=== PATIENT | male | born 1965 ===

== ENCOUNTER 2016-08-21 11:31 | Emergency (ER) | payer MEDICAID ==
[2016-08-21 11:49] VITALS: BMI 35.9
--- NOTE | 2016-08-21 11:59 | ED PDOC ---
Arrival/HPI - General Chief Complaint: Psychiatric Evaluation Time Seen by Provider: 08/21/16 11:43 Historian: Patient - History of Present Illness Narrative History of Present Illness (Text): 08/21/16 11:50 A 51 year old male, whose past medical history includes anxiety, depression, COPD, and chronic back/shoulder pain, presents to the emergency department complaining of feeling depressed. Patient reports he has not been on his anxiety /depression medication for 6 months now. He states his and mother does not get along and he feels as though he is stuck in between them. Patient says he was watching a movie early and he just started to feel down so he wanted to get out of the house. Patient reports he decided to come to the emergency department to see if he can just talk to someone. He denies any fever, chills, or other physical complaints at this time. No history of suicide attempts. He currently denies any suicidal/homicidal ideations or visual/auditory hallucinations. PMD: Dr. Metcalf Time/Duration: Prior to Arrival Symptom Onset: Sudden Symptom Course: Unchanged Quality: Other Activities at Onset: Rest Context: Home Past Medical History - Provider Review Nursing Documentation Reviewed: Yes - Infectious Disease Hx of Infectious Diseases: None - Cardiac Hx Cardiac Disorders: No - Pulmonary Hx Respiratory Disorders: Yes Hx Asthma: Yes Hx Chronic Obstructive Pulmonary Disease (COPD): Yes - Neurological Hx Neurological Disorder: No - HEENT Hx HEENT Disorder: No Hx Blind: No - Renal Hx Renal Disorder: No - Endocrine/Metabolic Hx Endocrine Disorders: No - Hematological/Oncological Hx Blood Disorders: No - Integumentary Hx Dermatological Disorder: No - Musculoskeletal/Rheumatological Hx Musculoskeletal Disorders: Yes Hx Spinal Stenosis: Yes - Gastrointestinal Hx Gastrointestinal Disorders: No - Genitourinary/Gynecological Hx Genitourinary Disorders: No - Psychiatric Hx Psychophysiologic Disorder: Yes Hx Anxiety: Yes Hx Depression: Yes Hx Substance Use: No - Surgical History Hx Cardiac Catheterization: Yes - Anesthesia Hx Anesthesia: No Hx Anesthesia Reactions: No Hx Malignant Hyperthermia: No Family/Social History - Physician Review Nursing Documentation Reviewed: Yes Family/Social History: Unknown Family HX Smoking Status: Former Smoker Hx Alcohol Use: No Hx Substance Use: No Allergies/Home Meds Allergies/Adverse Reactions: Allergies No Known Allergies Allergy (Verified 08/21/16 11:49) Home Medications: Home Meds Medication Instructions Recorded Confirmed Budesonide/Formoterol Fumarate 1 puff IH BID 07/27/15 08/21/16 [Symbicort 160-4.5 Mcg Inhaler] Cetirizine HCl [Zyrtec Allergy] 10 mg PO DAILY 07/27/15 08/21/16 Albuterol HFA [Ventolin HFA 90 2 puff IH PRN PRN 06/28/16 08/21/16 mcg/actuation (8 g)] Cyclobenzaprine [Flexeril] 10 mg PO DAILY PRN 06/28/16 08/21/16 Review of Systems - Physician Review All systems were reviewed & negative as marked: Yes - Review of Systems Constitutional: Normal. absent: Fevers Eyes: Normal ENT: Normal Respiratory: Normal. absent: SOB Cardiovascular: Normal. absent: Chest Pain Gastrointestinal: Normal. absent: Abdominal Pain Genitourinary Male: Normal Musculoskeletal: Normal Skin: Normal Neurological: Normal Endocrine: Normal Hemo/Lymphatic: Normal Psychiatric: Depression, Other ( no homicidal ideations or visual/auditory hallucinations). absent: Suicidal Ideation Physical Exam Vital Signs Reviewed: Yes Vital Signs Temp Pulse Resp BP Pulse Ox 08/21/16 12:01 98.9 F 71 16 149/86 97 Temperature: Afebrile Blood Pressure: Normal Pulse: Regular Respiratory Rate: Normal Appearance: Positive for: Well-Appearing, Non-Toxic, Comfortable Pain Distress: None Mental Status: Positive for: Alert and Oriented X 3 - Systems Exam Head: Present: Atraumatic, Normocephalic Pupils: Present: PERRL Conjunctiva: Present: Normal Mouth: Present: Moist Mucous Membranes, Normal Tounge Pharnyx: Present: Normal. No: ERYTHEMA, EXUDATE Neck: Present: Normal Range of Motion Respiratory/Chest: Present: Clear to Auscultation, Good Air Exchange. No: Respiratory Distress, Accessory Muscle Use Cardiovascular: Present: Regular Rate and Rhythm, Normal S1, S2. No: Murmurs Abdomen: Present: Normal Bowel Sounds. No: Tenderness, Distention, Peritoneal Signs Back: Present: Normal Inspection Upper Extremity: Present: Normal Inspection. No: Cyanosis, Edema Lower Extremity: Present: Normal Inspection. No: Edema Neurological: Present: GCS=15, CN II-XII Intact, Speech Normal Skin: Present: Warm, Dry, Normal Color. No: Rashes Psychiatric: Present: Alert, Oriented x 3, Normal Insight, Normal Concentration , Depressed Mood Medical Decision Making ED Course and Treatment: 08/21/16 11:50 Impression: A 51 year old male with depression. Differential Diagnosis include but are not limited to: Anxiety/Depression Plan: -- Consult PES worker -- Reassess and disposition Prior Visits: Notes and results from previous visits were reviewed. The patient last presented to the emergency department on 06/28/16 for evaluation of right shoulder and lower back pain. Progress Notes: 08/21/16 11:57 Case discussed PES worker who states she will come down to talk to the patient. 08/21/16 12:48 Patient with no physical complaints; does not need additional medical workup beyond screening exam as he does not need or want to be admitted. Seen by PES, who spoke with the patient and gave him options for follow up. Ok for d/c. - Scribe Statement The provider has reviewed the documentation as recorded by the Scribe [place] Provider Scribe Attestation: All medical record entries made by the Scribe were at my direction and personally dictated by me. I have reviewed the chart and agree that the record accurately reflects my personal performance of the history, physical exam, medical decision making, and the department course for this patient. I have also personally directed, reviewed, and agree with the discharge instructions and disposition. Disposition/Present on Arrival - Present on Arrival Any Indicators Present on Arrival: No History of DVT/PE: No History of Uncontrolled Diabetes: No Urinary Catheter: No History of Decub. Ulcer: No History Surgical Site Infection Following: None - Disposition Have Diagnosis and Disposition been Completed?: Yes Diagnosis: Depression Disposition: HOME/ ROUTINE Disposition Time: 12:50 Patient Plan: Discharge Condition: GOOD Discharge Instructions (ExitCare): Depression (ED), Anxiety (ED) Additional Instructions: Follow up as instructed for counseling. Return to the emergency department if any new concerning symptoms. Referrals: [facility] [Outside] - Follow up with primary [facility] [Outside] - Follow up with primary [facility] [Outside] - Follow up with primary
[2016-08-21 12:03] VITALS: BP 149/86; PULSE 71; RESP 16; TEMP 98.9; O2SAT 97
--- NOTE | 2016-08-22 16:38 | CARD ---
APPROVED REPORT EKG Measurement Heart [id number] <Conclusion> Normal sinus rhythm Normal ECG
== END 2016-08-21 13:19 | disposition home or self-care (01) ==
LOC: ED 11:31
DX: F32.9 Major depressive disorder, single episode, unspecified (principal); F41.9 Anxiety disorder, unspecified

== ENCOUNTER 2017-02-08 10:41 | Emergency (ER) | payer MEDICAID ==
[2017-02-08 10:41] VITALS: BMI 35.9
[2017-02-08 10:50] VITALS: TEMP 98.1; O2SAT 100
[2017-02-08] MEDS ORDERED: Albuterol-Ipratrop 3 mg / 0.5 (3 ml) UD IH STA (10:56)
--- NOTE | 2017-02-08 10:56 | ED PDOC ---
Arrival/HPI - General Chief Complaint: Shortness Of Breath Time Seen by Provider: 02/08/17 10:45 Historian: Patient - History of Present Illness Narrative History of Present Illness (Text): 02/08/17 10:50 Dhruv Lozada is a 52 year old male, whose past medical history includes COPD, depression, anxiety, and chronic lower back problems, who presents to the emergency department complaining of shortness of breath and chest tightness. Patient reports he has been feeling anxious for the past two days, but this morning he felt chest tightness which caused his shortness of breath. Patient notes that when he gets anxiety, he usually experiences these symptoms. Patient denies any fever, nausea, vomiting, headache, lower extremity swelling, or other complaints. PMD: Dr. Metcalf Time/Duration: < week (2 days) Symptom Onset: Sudden Symptom Course: Unchanged Quality: Pressure, Tightness (chest) Activities at Onset: Emotional Upset (anxiety) Associated Symptoms (Text): chest tightness, shortness of breath, and anxiety Past Medical History - Provider Review Nursing Documentation Reviewed: Yes - Infectious Disease Hx of Infectious Diseases: None - Cardiac Hx Cardiac Disorders: No - Pulmonary Hx Respiratory Disorders: Yes Hx Asthma: Yes Hx Chronic Obstructive Pulmonary Disease (COPD): Yes - Neurological Hx Neurological Disorder: No - HEENT Hx HEENT Disorder: No Hx Blind: No - Renal Hx Renal Disorder: No - Endocrine/Metabolic Hx Endocrine Disorders: No - Hematological/Oncological Hx Blood Disorders: No - Integumentary Hx Dermatological Disorder: No - Musculoskeletal/Rheumatological Hx Musculoskeletal Disorders: Yes Hx Spinal Stenosis: Yes - Gastrointestinal Hx Gastrointestinal Disorders: No - Genitourinary/Gynecological Hx Genitourinary Disorders: No - Psychiatric Hx Psychophysiologic Disorder: Yes Hx Anxiety: Yes Hx Depression: Yes Hx Substance Use: No - Surgical History Hx Cardiac Catheterization: Yes - Anesthesia Hx Anesthesia: No Hx Anesthesia Reactions: No Hx Malignant Hyperthermia: No Family/Social History - Physician Review Nursing Documentation Reviewed: Yes Family/Social History: Unknown Family HX Smoking Status: Former Smoker Hx Alcohol Use: No Hx Substance Use: No Allergies/Home Meds Allergies/Adverse Reactions: Allergies No Known Allergies Allergy (Verified 02/08/17 10:45) Review of Systems - Review of Systems Constitutional: absent: Fevers Respiratory: SOB Cardiovascular: Chest Pain (tightness/pressure) Gastrointestinal: absent: Abdominal Pain, Nausea, Vomiting Musculoskeletal: absent: Back Pain Neurological: absent: Headache, Dizziness Psychiatric: Anxiety Physical Exam Vital Signs Reviewed: Yes Vital Signs Temp Pulse Resp BP Pulse Ox 02/08/17 12:59 85 16 129/85 100 02/08/17 10:53 18 100 02/08/17 10:41 98.1 F 89 16 157/89 H 100 Temperature: Afebrile Blood Pressure: Hypertensive Pulse: Regular Respiratory Rate: Normal Appearance: Positive for: Well-Appearing, Non-Toxic, Comfortable Pain Distress: None Mental Status: Positive for: Alert and Oriented X 3 - Systems Exam Head: Present: Atraumatic, Normocephalic Pupils: Present: PERRL Extroacular Muscles: Present: EOMI Conjunctiva: Present: Normal Mouth: Present: Moist Mucous Membranes Neck: Present: Normal Range of Motion. No: MIDLINE TENDERNESS, JVD Respiratory/Chest: Present: Clear to Auscultation, Good Air Exchange. No: Respiratory Distress, Accessory Muscle Use, Wheezes, Rales, Rhonchi Cardiovascular: Present: Regular Rate and Rhythm, Normal S1, S2. No: Murmurs Abdomen: Present: Normal Bowel Sounds. No: Tenderness, Distention, Peritoneal Signs Upper Extremity: Present: Normal Inspection. No: Cyanosis, Edema, Swelling Lower Extremity: Present: Normal Inspection. No: Edema Neurological: Present: GCS=15, CN II-XII Intact, Speech Normal Skin: Present: Warm, Dry, Normal Color. No: Rashes Psychiatric: Present: Alert, Oriented x 3, Normal Insight, Normal Concentration , Anxious Medical Decision Making ED Course and Treatment: 02/08/17 Impression: 52 year old male with anxiety. Clear physical exam. No wheezes, rales, or rhonchi. Normal heart. No leg swelling. Differential Diagnosis included but are not limited to: Anxiety vs. ACS Plan: -- EKG -- Chest X-ray -- Labs -- Ativan and Duoneb given for symptoms. Patient is not wheezing so not likely COPD exacerbation. -- Reassess and disposition Progress Notes: EKG: Ordered, reviewed, and independently interpreted the EKG. Rate : 98 BPM Rhythm : NSR Interpretation : No ST-segment elevations or depressions, no T-wave inversions, normal intervals. 02/08/17 11:15 Chest X-ray: Creator : Milton Casillas MD FINDINGS: LUNGS: No active pulmonary disease. PLEURA: No significant pleural effusion identified, no pneumothorax apparent. CARDIOVASCULAR: Normal. OSSEOUS STRUCTURES: No significant abnormalities. VISUALIZED UPPER ABDOMEN: Normal. OTHER FINDINGS: None. IMPRESSION: No acute cardiopulmonary disease appreciated. No significant interval change identified. 02/08/17 12:47 Patient feels completely better. No longer having symptoms. He states the Ativan resolved his symptoms and would like an Rx. Patient is requesting medication for his COPD, allergies, lower back pain, and GERD. Medication will be given and prescribed for his discharge. - Lab Interpretations Lab Results: 02/08/17 11:23 02/08/17 11:23 Lab Results 02/08/17 11:23: Sodium 143, Potassium 4.1, Chloride 105, Carbon Dioxide 27, Anion Gap 15, BUN 17, Creatinine 1.0, Est GFR ( Amer) > 60, Est GFR (Non- Af Amer) > 60, Random Glucose 126 H, Calcium 9.6, Magnesium 2.0, Total Bilirubin 1.2, AST 25, ALT 40, Alkaline Phosphatase 61, Lactate Dehydrogenase 439, Total Creatine Kinase 88, Troponin I < 0.01, Total Protein 7.6, Albumin 4.5 , Globulin 3.1, Albumin/Globulin Ratio 1.5 02/08/17 11:23: WBC 8.2 D, RBC 5.12, Hgb 15.4, Hct 44.9, MCV 87.7, MCH 30.1, MCHC 34.3, RDW 14.0, Plt Count 256, MPV 10.0, Gran % 63.9, Lymph % (Auto) 26.2, [place] % (Auto) 7.9 H, Eos % (Auto) 1.8, Baso % (Auto) 0.2, Gran # 5.25, Lymph # 2.2, [place] # 0.7 H, Eos # 0.2, Baso # 0.02 I have reviewed the lab results: Yes - RAD Interpretation Radiology Orders: 02/08/17 10:55 CHEST PORTABLE [RAD] Stat Freelance Director: Radiologist - EKG Interpretation Interpreted by ED Physician: Yes Type: 12 lead EKG - Medication Orders Current Medication Orders: Discontinued Medications Albuterol/Ipratropium (Duoneb 3 Mg/0.5 Mg (3 Ml) Ud) 3 ml IH STAT STA Stop: 02/08/17 10:57 Last Admin: 02/08/17 11:21 Dose: 3 ml Lorazepam (Ativan) 1 mg IVP ONCE ONE PRN Reason: Protocol Stop: 02/08/17 10:56 Last Admin: 02/08/17 11:21 Dose: 1 mg IVP Administration Document 02/08/17 11:21 AD (Rec: 02/08/17 11:21 AD [facility] [id number]) Charges for Administration # of IVP Administrations 1 - Scribe Statement The provider has reviewed the documentation as recorded by the Scribe Evy Gilmore Provider Scribe Attestation: All medical record entries made by the Scribe were at my direction and personally dictated by me. I have reviewed the chart and agree that the record accurately reflects my personal performance of the history, physical exam, medical decision making, and the department course for this patient. I have also personally directed, reviewed, and agree with the discharge instructions and disposition. Disposition/Present on Arrival - Present on Arrival Any Indicators Present on Arrival: No History of DVT/PE: No History of Uncontrolled Diabetes: No Urinary Catheter: No History of Decub. Ulcer: No History Surgical Site Infection Following: None - Disposition Have Diagnosis and Disposition been Completed?: Yes Diagnosis: Anxiety, Chest pain, COPD (chronic obstructive pulmonary disease) Disposition: HOME/ ROUTINE Disposition Time: 13:00 Patient Plan: Discharge Condition: IMPROVED Discharge Instructions (ExitCare): Chest Pain (ED), COPD (Chronic Obstructive Pulmonary Disease) (ED), Anxiety (ED) Additional Instructions: Lozada, thank you for letting us take care of you today. Your provider was Dr. Escobedo. You were treated for Anxiety, Chest Pain, COPD. The emergency medical care you received today was directed at your acute symptoms. If you were prescribed any medication, please fill it and take as directed. It may take several days for your symptoms to resolve. Return to the Emergency Department if your symptoms worsen, do not improve, or if you have any other problems. Please contact your doctor or call one of the physicians/clinics you have been referred to that are listed on the Patient Visit Information form that is included in your discharge packet. Bring any paperwork you were given at discharge with you along with any medications you are taking to your follow up visit. Our treatment cannot replace ongoing medical care by a primary care provider (PCP) outside of the emergency department. Thank you for allowing the [facility] team to be part of your care today. If you had an X-Ray or CT scan: A Radiologist will review the ED reading if any change in treatment is needed we will contact you. If you had a blood, urine, or wound culture: It will take several days for the results, if any change in treatment is needed we will contact you. If you had an STI test: It will take 48 hours for the results. Please call after 1 week if you have not heard back. Prescriptions: Albuterol HFA [Ventolin HFA 90 mcg/actuation (8 g)] 2 puff IH Q4 #1 puff Alprazolam [Xanax] 0.5 mg PO Q8 PRN #5 tab PRN Reason: Anxiety Budesonide/Formoterol Fumarate [Symbicort 160-4.5 Mcg Inhaler] 10.2 gm IH BID # 1 hfa.aer.ad Cetirizine HCl [Zyrtec] 10 mg PO DAILY #20 capsule Cyclobenzaprine [Cyclobenzaprine HCl] 10 mg PO Q8 PRN #20 tab PRN Reason: Muscle Spasm Famotidine 20 mg PO DAILY #30 tablet Referrals: Izzy Metcalf MD [Primary Care Provider] - Follow up with primary Forms: [employer] ([place]er), WORK NOTE
--- NOTE | 2017-02-08 11:10 | RAD ---
HISTORY: chest pain COMPARISON: No prior. FINDINGS: LUNGS: No active pulmonary disease. PLEURA: No significant pleural effusion identified, no pneumothorax apparent. CARDIOVASCULAR: Normal. OSSEOUS STRUCTURES: No significant abnormalities. VISUALIZED UPPER ABDOMEN: Normal. OTHER FINDINGS: None. IMPRESSION: No acute cardiopulmonary disease appreciated. No significant interval change identified.
[2017-02-08 11:27] LABS: BASO # 0.02 K/mm3 (0.0-2.0); BASO % 0.2 % (0.0-3.0); EOS # 0.2 (0.0-0.7); EOS % 1.8 % (1.5-5.0); GRAN # 5.25 (1.4-6.5); GRAN % 63.9 % (50.0-68.0); HEMATOCRIT 44.9 % (42.0-52.0); LYMPH # 2.2 (1.2-3.4); LYMPH % 26.2 % (22.0-35.0); MEAN CELL VOLUME 87.7 fl (80.0-105.0); MEAN CORPUSCULAR HEMOGLOBIN 30.1 pg (25.0-35.0); MEAN CORPUSCULAR HGB CONC 34.3 g/dl (31.0-37.0); MONO # 0.7 (0.1-0.6); MONO % 7.9 % (1.0-6.0); WHITE BLOOD COUNT 8.2 10^3/ul (4.5-11.0)
[2017-02-08 11:37] LABS: ALB/GLOB RATIO 1.5 (1.1-1.8); ALKALINE PHOSPHATASE 61 U/L (38-126); ALT/SGPT 40 U/L (7-56); AST/SGOT 25 U/L (17-59); BILIRUBIN,TOTAL 1.2 mg/dL (0.2-1.3); BLOOD UREA NITROGEN 17 mg/dL (7-21); CALCIUM 9.6 mg/dL (8.4-10.5); CARBON DIOXIDE 27 mmol/L (21-33); CHLORIDE 105 mmol/L (98-107); GFR AFRICAN-AMERICAN > 60; GLUCOSE,RANDOM 126 mg/dL (70-110); POTASSIUM 4.1 mmol/L (3.6-5.0); SODIUM 143 mmol/L (132-148); TOTAL PROTEIN 7.6 g/dL (5.8-8.3)
[2017-02-08 11:48] LABS: TROPONIN I < 0.01 ng/mL
[2017-02-08 13:00] VITALS: BP 129/85; PULSE 85; RESP 16
--- NOTE | 2017-02-09 08:15 | CARD ---
APPROVED REPORT EKG Measurement Heart [id number] <Conclusion> Normal sinus rhythm Normal ECG
== END 2017-02-08 13:01 | disposition home or self-care (01) ==
LOC: ED 10:41
DX: J44.9 Chronic obstructive pulmonary disease, unspecified (principal); R07.9 Chest pain, unspecified; F41.9 Anxiety disorder, unspecified; Z87.891 Personal history of nicotine dependence
CPT/HCPCS: 71010; 80053; 82550; 83615; 83735; 84484; 85025; 93005; 96374; 99284; J2060

== ENCOUNTER 2017-07-19 11:27 | Inpatient (IN) | payer MEDICAID ==
[2017-07-19 11:28] VITALS: BMI 35.9
[2017-07-19] MEDS ORDERED: Albuterol-Ipratrop 3 mg / 0.5 (3 ml) UD IH STA (11:39)
--- NOTE | 2017-07-19 11:39 | ED PDOC ---
Arrival/HPI - General Time Seen by Provider: 07/19/17 11:33 Historian: Patient - History of Present Illness Narrative History of Present Illness (Text): 07/19/17 11:37 52 year old male, whose past medical history includes COPD, depression, and chronic lower back pain, presents to the emergency department complaining of suicidal ideation. Patient notes he feels anxious and hears voices telling him to kill himself. Patient notes he regularly sees a therapist on Tuesdays and . Patient occasionally takes his depression medication. No previous attempts to commit suicide. Patient denies any fevers, chest pain, back pain, headache, dizziness, abdominal pain, nausea, vomiting, diarrhea, homicidal ideation or any other complaints. Time/Duration: Prior to Arrival Symptom Onset: Gradual Symptom Course: Unchanged Activities at Onset: Light Context: Home Past Medical History - Provider Review Nursing Documentation Reviewed: Yes - Infectious Disease Hx of Infectious Diseases: None - Cardiac Hx Cardiac Disorders: No - Pulmonary Hx Respiratory Disorders: Yes Hx Asthma: Yes Hx Chronic Obstructive Pulmonary Disease (COPD): Yes - Neurological Hx Neurological Disorder: No - HEENT Hx HEENT Disorder: No Hx Blind: No - Renal Hx Renal Disorder: No - Endocrine/Metabolic Hx Endocrine Disorders: No - Hematological/Oncological Hx Blood Disorders: No - Integumentary Hx Dermatological Disorder: No - Musculoskeletal/Rheumatological Hx Musculoskeletal Disorders: Yes Hx Spinal Stenosis: Yes - Gastrointestinal Hx Gastrointestinal Disorders: No - Genitourinary/Gynecological Hx Genitourinary Disorders: No - Psychiatric Hx Psychophysiologic Disorder: Yes Hx Anxiety: Yes Hx Depression: Yes Hx Substance Use: No - Surgical History Hx Cardiac Catheterization: Yes - Anesthesia Hx Anesthesia: No Hx Anesthesia Reactions: No Hx Malignant Hyperthermia: No Family/Social History - Physician Review Nursing Documentation Reviewed: Yes Family/Social History: No Known Family HX Smoking Status: Former Smoker Hx Alcohol Use: No Hx Substance Use: No Allergies/Home Meds Allergies/Adverse Reactions: Allergies No Known Allergies Allergy (Verified 07/19/17 11:40) Review of Systems - Physician Review All systems were reviewed & negative as marked: Yes - Review of Systems Respiratory: absent: SOB Physical Exam - Physical Exam Narrative Physical Exam (Text): 07/19/17 11:44 Gen: NAD Head: NC/AT Eyes: PERRL ENT: MMM Neck: Supple Chest: No tenderness CV: Regular rate Lungs: CTA b/l Abd: Soft, NT Back: No CVA tenderness Extremities: No swelling or tenderness Skin: No rash Neuro: Alert, no focal deficit Vital Signs Temp Pulse Resp BP Pulse Ox 07/19/17 15:20 65 17 136/80 98 07/19/17 13:19 70 18 135/82 100 07/19/17 11:28 98.1 F 63 20 139/74 100 Medical Decision Making ED Course and Treatment: 07/19/17 11:44 Impression: 52 year old male presents to the ED complaining of suicidal ideation. Plan: -- EKG -- CXR -- Urinalysis -- Labs -- Acetaminophen -- Duoneb -- Salycilate -- Reassess and disposition Progress Notes: 07/19/17 12:09 Chest X-ray reviewed, shows: LUNGS: No active pulmonary disease. PLEURA: No significant pleural effusion identified, no pneumothorax apparent. CARDIOVASCULAR: Normal. OSSEOUS STRUCTURES: No significant abnormalities. VISUALIZED UPPER ABDOMEN: Normal. OTHER FINDINGS: None. IMPRESSION: No active disease. 07/19/17 12:26 EKG reviewed, shows NSR at 61 bpm. NST/T wave changes. - Lab Interpretations Lab Results: 07/19/17 12:30 07/19/17 12:30 Lab Results 07/19/17 12:40: Urine Opiates Screen Negative, Urine Methadone Screen Negative, Ur Barbiturates Screen Negative, Ur Phencyclidine Scrn Negative, Ur Amphetamines Screen Negative, U Benzodiazepines Scrn Negative, U Oth Cocaine Metabols Negative, U Cannabinoids Screen Positive H 07/19/17 12:40: Urine Color Yellow, Urine Appearance Clear, Urine pH 6.0, Ur Specific [place] 1.025, Urine Protein Negative, Urine Glucose (UA) Negative, Urine Ketones Negative, Urine Blood Negative, Urine Nitrate Negative, Urine Bilirubin Negative, Urine Urobilinogen 0.2, Ur Leukocyte Esterase Negative 07/19/17 12:30: Alcohol, Quantitative < 10 07/19/17 12:30: Salicylates < 1 L, Acetaminophen < 10.0 L 07/19/17 12:30: Sodium 145, Potassium 5.1 H, Chloride 106, Carbon Dioxide 28, Anion Gap 16, BUN 18, Creatinine 1.2, Est GFR ( Amer) > 60, Est GFR (Non- Af Amer) > 60, Random Glucose 106, Calcium 10.2, Total Bilirubin 0.8, AST 25, ALT 47, Alkaline Phosphatase 62, Total Protein 8.0, Albumin 4.5, Globulin 3.5, Albumin/Globulin Ratio 1.3 07/19/17 12:30: WBC 7.9, RBC 5.04, Hgb 15.5, Hct 46.2, MCV 91.7 D, MCH 30.8, MCHC 33.5, RDW 14.4, Plt Count 243, MPV 10.7, Gran % 55.6, Lymph % (Auto) 32.5, [place] % (Auto) 8.8 H, Eos % (Auto) 2.8, Baso % (Auto) 0.3, Gran # 4.37, Lymph # ( Auto) 2.6, [place] # (Auto) 0.7 H, Eos # (Auto) 0.2, Baso # (Auto) 0.02 - RAD Interpretation Radiology Orders: 07/19/17 11:38 CHEST PORTABLE [RAD] Stat - Medication Orders Current Medication Orders: Discontinued Medications Albuterol/Ipratropium (Duoneb 3 Mg/0.5 Mg (3 Ml) Ud) 3 ml IH STAT STA Stop: 07/19/17 11:40 Last Admin: 07/19/17 12:20 Dose: 3 ml - Scribe Statement The provider has reviewed the documentation as recorded by the Scribe Kylee Haywood All medical record entries made by the Scribe were at my direction and personally dictated by me. I have reviewed the chart and agree that the record accurately reflects my personal performance of the history, physical exam, medical decision making, and the department course for this patient. I have also personally directed, reviewed, and agree with the discharge instructions and disposition. Disposition/Present on Arrival - Present on Arrival Any Indicators Present on Arrival: No History of DVT/PE: No History of Uncontrolled Diabetes: No Urinary Catheter: No History Surgical Site Infection Following: None - Disposition Have Diagnosis and Disposition been Completed?: Yes Diagnosis: Major depressive disorder with psychotic features, Panic disorder Disposition: HOSPITALIZED Disposition Time: 13:18 Patient Plan: Admission Condition: FAIR Referrals: Izzy Metcalf MD [Primary Care Provider] - Follow up with primary
--- NOTE | 2017-07-19 12:06 | RAD ---
HISTORY: suicidal ideation COMPARISON: 02/08/2017 FINDINGS: LUNGS: No active pulmonary disease. PLEURA: No significant pleural effusion identified, no pneumothorax apparent. CARDIOVASCULAR: Normal. OSSEOUS STRUCTURES: No significant abnormalities. VISUALIZED UPPER ABDOMEN: Normal. OTHER FINDINGS: None. IMPRESSION: No active disease.
[2017-07-19 12:44] LABS: BASO # 0.02 K/mm3 (0.0-2.0); BASO % 0.3 % (0.0-3.0); EOS # 0.2 (0.0-0.7); EOS % 2.8 % (1.5-5.0); GRAN # 4.37 (1.4-6.5); GRAN % 55.6 % (50.0-68.0); HEMOGLOBIN 15.5 g/dL (14.0-18.0); LYMPH # 2.6 (1.2-3.4); LYMPH % 32.5 % (22.0-35.0); MEAN CELL VOLUME 91.7 fl (80.0-105.0); MEAN CORPUSCULAR HEMOGLOBIN 30.8 pg (25.0-35.0); MEAN CORPUSCULAR HGB CONC 33.5 g/dl (31.0-37.0); MEAN PLATELET VOLUME 10.7 fl (7.0-11.0); MONO # 0.7 (0.1-0.6); MONO % 8.8 % (1.0-6.0); RBC 5.04 10^6/uL (3.5-6.1); RED CELL DISTRIBUTION WIDTH 14.4 % (11.5-14.5); WHITE BLOOD COUNT 7.9 10^3/ul (4.5-11.0)
[2017-07-19 12:52] LABS: URINE BILIRUBIN NEGATIVE (NEGATIVE); URINE BLOOD NEGATIVE (NEGATIVE); URINE GLUCOSE (UA) NEGATIVE (NEGATIVE); URINE LEUKOCYTE ESTERASE NEGATIVE Leu/uL (NEGATIVE); URINE PROTEIN NEGATIVE mg/dL (<30 mg/dL); URINE UROBILINOGEN 0.2 E.U./dL (<1 E.U./dL)
[2017-07-19 12:59] LABS: URINE APPEARANCE CLEAR (CLEAR); URINE COLOR YELLOW (YELLOW)
[2017-07-19 13:02] LABS: ALB/GLOB RATIO 1.3 (1.1-1.8); ALBUMIN 4.5 g/dL (3.0-4.8); ALT/SGPT 47 U/L (7-56); AST/SGOT 25 U/L (17-59); BLOOD UREA NITROGEN 18 mg/dL (7-21); CALCIUM 10.2 mg/dL (8.4-10.5); GFR AFRICAN-AMERICAN > 60; GFR NON-AFRICAN AMERICAN > 60
[2017-07-19 13:03] LABS: ACETAMINOPHEN < 10.0 ug/ml (10.0-20.0); SALICYLATE < 1 mg/dL (2.0-20.0)
[2017-07-19 13:16] LABS: BARBITURATES, UR NEGATIVE (NEGATIVE); BENZODIAZEPINES, UR NEGATIVE (NEGATIVE); OPIATES, UR NEGATIVE (NEGATIVE); PHENCYCLIDINE, UR NEGATIVE (NEGATIVE)
[2017-07-19 15:21] VITALS: O2SAT 98
--- NOTE | 2017-07-19 17:03 | CARD ---
APPROVED REPORT EKG Measurement Heart [id number] <Conclusion> Normal sinus rhythm Normal ECG
[2017-07-19] MEDS ORDERED: Alum-Mag Hydrox-Simethicone Susp (30 mL) PO PRN (17:39)
[2017-07-19] MEDS ORDERED: Magnesium Hydroxide Susp 30 ml UD PO PRN (17:39)
--- NOTE | 2017-07-19 18:12 | PCM.BM ---
<Donny Glass - Last Filed: 07/19/17 18:11> Treatment Plan Problems - Problems identified on initial assessmt Anxiety Date Initiated: 07/19/17 Time Initiated: 18:12 Assessment reference: NA Status: Active Priority: 1 Depressive Symptoms Date Initiated: 07/19/17 Time Initiated: 18:12 Assessment reference: NA Priority: 2 Panic Attacks Date Initiated: 07/19/17 Time Initiated: 18:12 Assessment reference: NA Status: Active Priority: 3 <Orquidea Driscoll - Last Filed: 07/20/17 14:37> Family Contact Family involvement: Family/SO is involved Family contact: Patient agrees to contact Family contact name: Katie Dietz(girlfriend) [phone] Family contacted how many times per week?: 2 - Outside Agency [facility] Care involvment: Information-sharing Agency contact name: [facility], therapist, Shanta Perry Agency contact number: [phone] <Eva Casanova - Last Filed: 07/20/17 14:41> - Diagnosis (1) Adjustment disorder with mixed anxiety and depressed mood Status: Acute Interventions: 07/20/17 14:40 Psychoeducation Psychopharmacology/adjustment of medications as needed/ monitoring possible side effects Evaluate pt on daily basis Compliance with medications and follow up appointments Suicide and homicide risk assessment and prevention Relapse prevention Reduction of symptoms Improve functional status Family involvement As outpatient: cognitive behavioral therapy Relaxation techniques and breathing exercises Improve functional status Family involvement Cognitive behavioral therapy as outpatient
[2017-07-19] MEDS ORDERED: Albuterol-Ipratrop 3 mg / 0.5 (3 ml) UD ONE (18:37)
[2017-07-19] MEDS ORDERED: Albuterol-Ipratrop 3 mg / 0.5 (3 ml) UD IH PRN (18:44)
[2017-07-20 07:03] VITALS: BP 123/91; PULSE 77; RESP 20; TEMP 99.6
[2017-07-20 08:07] LABS: GLUCOSE,FASTING 106 mg/dL (65-110); HDL CHOLESTEROL 62 mg/dL (29-60)
[2017-07-20 08:17] LABS: LDL CHOLESTEROL 93 mg/dL (0-129)
[2017-07-20 08:25] LABS: FREE T4 1.18 ng/dL (0.78-2.19)
--- NOTE | 2017-07-20 14:37 | PCM.PSYCH ---
Initial Psychiatric Evaluation - Initial Psychiatric Evaluation Type of Admission: Voluntary Legal Status: Capacity (patient has capacity to sign consent for treatment) Chief Complaint (in patient's own words): "I was sleepy, I did not realize that I'm signing myself in for psychiatric admission" Patient's Reaction to Hospitalization: patient was admitted to the psychiatric inpatient unit for worsening depression and anxiety. History of Present Illness and Precipitating Events: shortly patient is 52-year-old male, self reported history of depression and anxiety, denied history or psychiatric admissions, denied history of suicidal attempts, patient lives with his in [place], came to the hospital for evaluation of panic attacks, in the emergency room patient reported being depressed, hopeless, patient was offered psychiatric admission, patient was willing to sign himself into the hospital at the time of coming to the psychiatric inpatient unit patient signed 48 hour notice requesting discharge. 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 As per collateral information from the nursing staff, patient did not have any behavioral disturbances, polite, consistent with his history. Patient was seen and examined today at the treatment team meeting,patient reported that she moved to [place] recently, patient reported that he was struggling with his anxiety and depression which mostly related to the social problems as well as financial problems. He shouldn't reported that he was feeling more anxious and depressed patient adamantly denied thoughts of harming himself or others, patient said that he was status post medication in the emergency room and he was not aware that he was signing consent for psychiatric inpatient admission. pt said that he has scheduled appt at [employer] office tomorrow at 9am and "I cannot miss it". pt gave permission to speak to his , SW contacted , pt's confirmed that information. pt's said pt did not express any thoughts of harming self or others, willing to accept him back. pt said he was not able to sleep because "my mind is very busy, patient reported that he was feeling very anxious and he sees therapist twice a week. patient denied hearing voices denied seeing things denied paranoid ideation but reports that "my mind is very busy". patient denied smoking, denied using drugs, denied drinking alcohol. Past psychiatric history: denied previous psychiatric admissions, denied previous suicidal attempts. Currently linked to OPD treatment (individual) at [facility] in [place] - Angelica Hollis (Therapist) and unable to recall Psychiatrists name as he has only seen him twice, monthly. Other OPD treatment facilities include [facility] ([facility]), [facility] ([facility]) , and [facility] ([facility]). medical history: Patient has COPD Family history: Patient's son hang himself at age of 12. Pt. is a 52 year old M/H/M referred to [facility] for psychiatric evaluation. "I've been having thoughts of killing myself on and off since 2005, I go through good and bad periods, but the past couple of months I have been really struggling. I had a severe panic attack yesterday, so I went to see my therapist again and told her everything that was going on and how I was feeling and she suggested that I come to the hospital yesterday, but I felt like I would be OK. I made a promise to her that if I woke up today and still felt the same that I would come to the ER so I did, and I called her on the way over here. All the noise that's going on in my head, it's really overwhelming." Pt. appears anxious but fully cooperative during assessment. Admits to SI, with plan(s), but no plan is fully fixed in place, as they range from how he is feeling in the moment. Denies any HI. Pt. also admits to AH, of multiple voices, but can't make out what they are saying, and states that all of the "noise" causes him to become so "overwhelmed" that he has feelings of wanting to hurt himself so he can make them stop. Pt. reports very poor sleep, "no" sleep last evening, despite being recently prescribed Trazadone at [facility]. Fluxuating appetite. Increased panic attacks. Seeking potential IPU admission for stabilization of symptoms. 07/19/17 12:30 07/19/17 12:30 Lab Results 07/20/17 07:00: Free T4 1.18, TSH 3rd Generation 4.86 H 07/20/17 07:00: Fasting Glucose 106, Triglycerides 102, Cholesterol 178, LDL Cholesterol Direct 93, HDL Cholesterol 62 H 07/19/17 12:40: Urine Opiates Screen Negative, Urine Methadone Screen Negative, Ur Barbiturates Screen Negative, Ur Phencyclidine Scrn Negative, Ur Amphetamines Screen Negative, U Benzodiazepines Scrn Negative, U Oth Cocaine Metabols Negative, U Cannabinoids Screen Positive H 07/19/17 12:40: Urine Color Yellow, Urine Appearance Clear, Urine pH 6.0, Ur Specific [place] 1.025, Urine Protein Negative, Urine Glucose (UA) Negative, Urine Ketones Negative, Urine Blood Negative, Urine Nitrate Negative, Urine Bilirubin Negative, Urine Urobilinogen 0.2, Ur Leukocyte Esterase Negative 07/19/17 12:30: Alcohol, Quantitative < 10 07/19/17 12:30: Salicylates < 1 L, Acetaminophen < 10.0 L 07/19/17 12:30: Sodium 145, Potassium 5.1 H, Chloride 106, Carbon Dioxide 28, Anion Gap 16, BUN 18, Creatinine 1.2, Est GFR ( Amer) > 60, Est GFR (Non- Af Amer) > 60, Random Glucose 106, Calcium 10.2, Total Bilirubin 0.8, AST 25, ALT 47, Alkaline Phosphatase 62, Total Protein 8.0, Albumin 4.5, Globulin 3.5, Albumin/Globulin Ratio 1.3 07/19/17 12:30: WBC 7.9, RBC 5.04, Hgb 15.5, Hct 46.2, MCV 91.7 D, MCH 30.8, MCHC 33.5, RDW 14.4, Plt Count 243, MPV 10.7, Gran % 55.6, Lymph % (Auto) 32.5, [place] % (Auto) 8.8 H, Eos % (Auto) 2.8, Baso % (Auto) 0.3, Gran # 4.37, Lymph # ( Auto) 2.6, [place] # (Auto) 0.7 H, Eos # (Auto) 0.2, Baso # (Auto) 0.02 Vital Signs Temp Pulse Resp BP Pulse Ox 07/20/17 07:02 99.6 F 77 20 123/91 H 07/19/17 18:09 16 07/19/17 15:20 65 17 136/80 98 07/19/17 13:19 70 18 135/82 100 07/19/17 11:28 98.1 F 63 20 139/74 100 Current Medications: Active Medications Generic Name Dose Route Start Last Admin Trade Name Freq PRN Reason Stop Dose Admin Acetaminophen 650 mg 07/19/17 17:39 Tylenol 325mg Tab PO Q4 PRN Pain, Mild (1-3) Al Hydrox/Mg Hydrox/Simethicone 30 ml 07/19/17 17:39 Maalox Plus 30 Ml PO DAILY PRN Upset Stomach Albuterol/Ipratropium 3 ml 07/19/17 18:44 07/20/17 06:31 Duoneb 3 Mg/0.5 Mg (3 Ml) Ud IH 3 ml [id number] PRN Administration Shortness of Breath Clonazepam 0.5 mg 07/19/17 18:07 Klonopin PO BID PRN Anxiety Protocol Lorazepam 1 mg 07/19/17 18:06 Ativan IM Q6H PRN Agitation Protocol Lorazepam 1 mg 07/19/17 18:06 Ativan PO Q6H PRN Agitation Protocol Magnesium Hydroxide 30 ml 07/19/17 17:39 Milk Of Magnesia PO DAILY PRN Constipation Trazodone HCl 50 mg 07/19/17 22:00 Desyrel PO HS PRN Insomnia Past Psychiatric History - Past Psychiatric History Previous Treatment History: None Prior Professional Help: see HPI Prior Psychiatric Treatment: see HPI At what hospital: see HPI Duration: see HPI Nature of Treatment: see HPI Explanation of prior treatment: see HPI History of Abuse: see HPI patient denied history of abuse History of ETOH/Drug Use: denied History of Family Illness: see HPI Pertinent Medical Hx (Current Medical&Sleep Prob, Allergies): Allergies Allergy/AdvReac Type Severity Reaction Status Date / Time No Known Allergies Allergy Verified 07/19/17 18:13 Albuterol HFA [Ventolin HFA 90 mcg/actuation (8 g)] 2 puff IH Q4 #1 puff Alprazolam [Xanax] 0.5 mg PO Q8 PRN #5 tab 02/08/17 Budesonide/Formoterol Fumarate [Symbicort 160-4.5 Mcg Inhaler] 10.2 gm IH BID # 1 hfa.aer.ad 02/08/17 Cetirizine HCl [Zyrtec] 10 mg PO DAILY #20 capsule 02/08/17 Cyclobenzaprine [Cyclobenzaprine HCl] 10 mg PO Q8 PRN #20 tab 02/08/17 Famotidine 20 mg PO DAILY #30 tablet 02/08/17 Review of Systems - Review of Systems Systems not reviewed;Unavailable: Acuity of Condition - EENT Eyes: As Per HPI Ears: As Per HPI Nose/Mouth/Throat: As Per HPI - Cardiovascular Cardiovascular: As Per HPI - Respiratory Respiratory: As Per HPI - Gastrointestinal Gastrointestinal: As Per HPI - Genitourinary Genitourinary: As Per HPI - Reproductive: Male Reproductive:Male: As Per HPI - Musculoskeletal Musculoskeletal: As Par HPI - Integumentary Integumentary: As Per HPI - Neurological Neurological: As Per HPI - Psychiatric Psychiatric: As Per HPI - Endocrine Endocrine: As Per HPI - Hematologic/Lymphatic Hematologic: As Per HPI Mental Status Examination - Personal Presentation Personal Presentation: Looks stated age - Affect Affect: Constricted (but reactive, mood congruent) - Motor Activity Motor Activity: Calm - Reliability in Providing Information Reliability in Providing Information: Good - Speech Speech: Organized - Mood Mood: Depressed, Anxious - Formal Thought Process Formal Thought Process: No Impairment - Obsessions/Compulsions Obsessions: None Compulsions: None - Cognitive Functions Orientation: Person, Place, Situation, Time Sensorium: Alert Attention/Concentration: Easily distracted Abstract Thinking: As evidence by abstract perception of proverbs Estimate of Intelligence: Average Judgement: Intact, as evidence by: Insight regarding need for hospitalization - Risk Risk: Diminished functioning - Strength & Assets Inventory Strength & Assets Inventory: Intelligence, Family support, Life experience, Cooperative - Limitations Limitations: Other (patient signing himself out of the hospital) DSM 5 DX - DSM 5 DSM 5 Diagnosis: Rule out bipolar spectrum disorder Rule out major depressive disorder Rule out anxiety due to general medical condition, patient has COPD Rule out panic disorder Rule out generalized anxiety disorder Rule out adjustment disorder with depressed and anxious mood - Recommended/Plan of Treatment Treatment Recommendations and Plan of Treatment: patient submitted 48 hour notice, requesting discharge Patient refuses to stay in the hospital saying that he has appointment at [employer] office Reason patient presentation patient deemed not to be in any imminent danger to self or others patient has follow-up appointment with his therapist as well as psychiatrist Patient might benefit from the psychiatric admission, but refused to stay in the hospital, patient will be discharged from the psychiatric inpatient unit AGAINST MEDICAL ADVICE Patient was advised to take medication as prescribed, follow-up with his therapist and psychiatrist, patient contracted for safety patient does not meet the criteria for involuntary commitment and screening Prognosis: fair Discharge Plan and Discharge Criteria: Pt will be not depressed or manic, will be more hopeful, will be not psychotic or anxious, will be not having thoughts of harming self or others, will be tolerating medications well, will not have major side effects, will be able to function, will not pose threat to self or others. - Smoking Cessation Smoking Cessation Initiated: No Reason for not providing: patient denied smoking
--- NOTE | 2017-07-20 14:40 | PCM.PYCHDC ---
Mental Status Examination - Mental Status Examination Orientation: Person, Place, Situation, Time Memory: Intact Mood: Depressed Affect: Constricted (but reactive mood congruent) Speech: Appropriate Attention: WNL Concentration: WNL Association: WNL Fund of Knowledge: WNL Formal Thought Process: No Impairment Description of patient's judgement and insight: , pt was compliant with medications and unit rules and regulations, pt was going to groups, was calm, cooperative, socially appropriate, no behavioral incidents, no agitation, no aggression. Psychotic Thoughts and Behaviors: Pt denied v/a/t hallucinations, denied paranoid ideations, pt does not appear to be psychotic, and thought process is goal directed. Suicidal Ideation: No Current Homicidal Ideation?: No Plan: pt adamantly denied thoughts of harming self or others denied intent or plan. Discharge Summary - Discharge Note Reason for Hospitalization: patient was admitted to the psychiatric inpatient unit for worsening depression and anxiety. Psychiatric History (includes Medical, Family, Personal Hx): see HPI Laboratory Data: Abnormal Lab Results 07/20/17 07/20/17 07:00 07:00 Fasting Glucose 106 Triglycerides 102 Cholesterol 178 LDL Cholesterol Direct 93 HDL Cholesterol 62 H Free T4 1.18 TSH 3rd Generation 4.86 H Consultations:: List each consultation separately and include: 1. Reason for request. 2. Findings. 3. Follow-up Consultations: medical team was called Summary of Hospital Course include:: 1. Description of specific treatment plan utilized for patients during their course of treatmen. 2. Summarize the time- course for resolution of acute symptoms and/or regressed behaviors. 3. Describe issues identified and worked on during hospitalization. 4. Describe medication utilized. 5. Describe medical problems identified and treated. 6. Reassessment of suicide risk Summary of Hospital Course: shortly patient is 52-year-old male, self reported history of depression and anxiety, denied history or psychiatric admissions, denied history of suicidal attempts, patient lives with his in [place], came to the hospital for evaluation of panic attacks, in the emergency room patient reported being depressed, hopeless, patient was offered psychiatric admission, patient was willing to sign himself into the hospital at the time of coming to the psychiatric inpatient unit patient signed 48 hour notice requesting discharge. 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 As per collateral information from the nursing staff, patient did not have any behavioral disturbances, polite, consistent with his history. Patient was seen and examined today at the treatment team meeting,patient reported that she moved to [place] recently, patient reported that he was struggling with his anxiety and depression which mostly related to the social problems as well as financial problems. He shouldn't reported that he was feeling more anxious and depressed patient adamantly denied thoughts of harming himself or others, patient said that he was status post medication in the emergency room and he was not aware that he was signing consent for psychiatric inpatient admission. pt said that he has scheduled appt at [employer] office tomorrow at 9am and "I cannot miss it". pt gave permission to speak to his , SW contacted , pt's confirmed that information. pt's said pt did not express any thoughts of harming self or others, willing to accept him back. pt said he was not able to sleep because "my mind is very busy, patient reported that he was feeling very anxious and he sees therapist twice a week. patient denied hearing voices denied seeing things denied paranoid ideation but reports that "my mind is very busy". patient denied smoking, denied using drugs, denied drinking alcohol. Past psychiatric history: denied previous psychiatric admissions, denied previous suicidal attempts. Currently linked to OPD treatment (individual) at [facility] in [place] - Angelica Hollis (Therapist) and unable to recall Psychiatrists name as he has only seen him twice, monthly. Other OPD treatment facilities include [facility] ([facility]), [facility] ([facility]) , and [facility] ([facility]). medical history: Patient has COPD Family history: Patient's son hang himself at age of 12. 07/19/17 12:30 07/19/17 12:30 Lab Results 07/20/17 07:00: Free T4 1.18, TSH 3rd Generation 4.86 H 07/20/17 07:00: Fasting Glucose 106, Triglycerides 102, Cholesterol 178, LDL Cholesterol Direct 93, HDL Cholesterol 62 H 07/19/17 12:40: Urine Opiates Screen Negative, Urine Methadone Screen Negative, Ur Barbiturates Screen Negative, Ur Phencyclidine Scrn Negative, Ur Amphetamines Screen Negative, U Benzodiazepines Scrn Negative, U Oth Cocaine Metabols Negative, U Cannabinoids Screen Positive H 07/19/17 12:40: Urine Color Yellow, Urine Appearance Clear, Urine pH 6.0, Ur Specific [place] 1.025, Urine Protein Negative, Urine Glucose (UA) Negative, Urine Ketones Negative, Urine Blood Negative, Urine Nitrate Negative, Urine Bilirubin Negative, Urine Urobilinogen 0.2, Ur Leukocyte Esterase Negative 07/19/17 12:30: Alcohol, Quantitative < 10 07/19/17 12:30: Salicylates < 1 L, Acetaminophen < 10.0 L 07/19/17 12:30: Sodium 145, Potassium 5.1 H, Chloride 106, Carbon Dioxide 28, Anion Gap 16, BUN 18, Creatinine 1.2, Est GFR ( Amer) > 60, Est GFR (Non- Af Amer) > 60, Random Glucose 106, Calcium 10.2, Total Bilirubin 0.8, AST 25, ALT 47, Alkaline Phosphatase 62, Total Protein 8.0, Albumin 4.5, Globulin 3.5, Albumin/Globulin Ratio 1.3 07/19/17 12:30: WBC 7.9, RBC 5.04, Hgb 15.5, Hct 46.2, MCV 91.7 D, MCH 30.8, MCHC 33.5, RDW 14.4, Plt Count 243, MPV 10.7, Gran % 55.6, Lymph % (Auto) 32.5, [place] % (Auto) 8.8 H, Eos % (Auto) 2.8, Baso % (Auto) 0.3, Gran # 4.37, Lymph # ( Auto) 2.6, [place] # (Auto) 0.7 H, Eos # (Auto) 0.2, Baso # (Auto) 0.02 Vital Signs Temp Pulse Resp BP Pulse Ox 07/20/17 07:02 99.6 F 77 20 123/91 H 07/19/17 18:09 16 07/19/17 15:20 65 17 136/80 98 07/19/17 13:19 70 18 135/82 100 07/19/17 11:28 98.1 F 63 20 139/74 100 patient refused to stay in the hospital, subjective 48 hour notice patient submitted 48 hour notice, requesting discharge Patient refuses to stay in the hospital saying that he has appointment at [employer] office Reason patient presentation patient deemed not to be in any imminent danger to self or others patient has follow-up appointment with his therapist as well as psychiatrist Patient might benefit from the psychiatric admission, but refused to stay in the hospital, patient will be discharged from the psychiatric inpatient unit AGAINST MEDICAL ADVICE Patient was advised to take medication as prescribed, follow-up with his therapist and psychiatrist, patient contracted for safety patient does not meet the criteria for involuntary commitment and screening At the time of the discharge pt denied been depressed, denied thoughts of harming self or others, denied psychotic symptoms, and pt does not appeared to be psychotic, denied been anxious, pt is not in imminent danger to self or others, will be following up at ., information about follow up appointment, time and address provided to the pt, it is patient responsibility to follow up with outpatient clinic, PMD as well as specialists (see SW note for more detailed information). In case pt will need to obtain results of studies pending at discharge pt was provided with contact information of Psychiatric Inpatient unit [phone] as well as Medical Record Department [phone]. No prescriptions provided Pt was educated about safety plan in case of worsening of symptoms or in case of suicidal or homicidal ideation call 911 or go to the nearest ER, also was educated to take meds as prescribed and stay away from drugs, pt verbalized understanding. - Diagnosis (1) Adjustment disorder with mixed anxiety and depressed mood Status: Acute - Final Diagnosis (DSM 5) Condition upon Discharge: FAIR Disposition: AGAINST MEDICAL ADVICE Follow-up Treatment Plan: patient submitted 48 hour notice, requesting discharge Patient refuses to stay in the hospital saying that he has appointment at [employer] office Reason patient presentation patient deemed not to be in any imminent danger to self or others patient has follow-up appointment with his therapist as well as psychiatrist Patient might benefit from the psychiatric admission, but refused to stay in the hospital, patient will be discharged from the psychiatric inpatient unit AGAINST MEDICAL ADVICE Patient was advised to take medication as prescribed, follow-up with his therapist and psychiatrist, patient contracted for safety patient does not meet the criteria for involuntary commitment and screening - Smoking Cessation Smoking Cessation Medication prescribed: No Reason for not providing: atient denied smoking - Antipsychotic Medications Pt discharged on 2 or more routine antipsychotic medications: No
--- NOTE | 2017-07-20 23:00 | CON ---
DATE: HISTORY OF PRESENT ILLNESS: I saw him in his room today. He is telling me that he had a panic attack and did not know he was being put in to the hospital for a few days. He just wanted to stay overnight and he signed a form not knowing what it says. He was going to try and leave today. He signed the 48 hour. He is a 52-year-old man with a history of suicidal ideation, complains of voices telling that he wanted to kill himself and he sees a therapist on Monday and , and wants to go home and see his therapist today at 1:00, we will see what the psychiatrist here says. PAST MEDICAL HISTORY: He has a past medical history of COPD, depression, chronic low back pain, asthma, spinal stenosis, anxiety. He had a cardiac catheterization one time. FAMILY HISTORY: No family history. SOCIAL HISTORY: Former smoker. No alcohol. No drugs. ALLERGIES: NO KNOWN DRUG ALLERGIES. REVIEW OF SYSTEMS: No acute vision changes or hearing changes. No sore throat. No chest pain. No palpitations. No shortness of breath, wheezing, or coughing at this time. No abdominal pain, nausea, vomiting, constipation, or diarrhea. No extremity issues. No skin issues. He was a little bit anxious and panicky earlier. PHYSICAL EXAMINATION VITAL SIGNS: He has a 98.1 temp, 63 pulse, 20 respiratory rate, 139/74 blood pressure, 100% O2 sat on room air. GENERAL: In no acute distress. HEENT: His head is atraumatic, normocephalic. Pupils are equal and reactive to light. Extraocular muscles are intact. Throat is moist. NECK: Supple. HEART: Regular rate. Normal S1 and S2. LUNGS: Decreased breath sounds, but clear to auscultation bilaterally. ABDOMEN: Soft, nontender. Positive bowel sounds. No guarding, no rebound, no CVA tenderness. NEUROLOGIC: Cranial nerves II through XII grossly intact. No focal deficits. He can stick out his tongue midline. Close his eyes tight. Put his arms over his head. SKIN: No apparent rashes or ulcers. LYMPH NODES: Thyroid midline. No palpable appreciable lymphadenopathy. LABORATORY DATA: He had tests done. He has a 7.9 white count, 15.5 hemoglobin, 46.2 hematocrit, with 243 platelets. Sodium 145, potassium is 5.1, we will keep an eye on that and check it tomorrow, BUN 18, creatinine 1.2, GFR is greater than 60, sugar is 106, calcium is 10.2, total bili is 0.8, AST is 25, ALT is 47, alkaline phosphatase 62, total protein 8. Albumin is 4.5, globulin 3.5. Cholesterol is 178. TSH is 4.86, we will do that tomorrow. Urine is clear. Toxicology was positive for cannabis. EKG and chest x-ray were fine. ASSESSMENT AND PLAN: He is here for panic attack, hypothyroid, possibly substance abuse, asthma history, and we will check his labs tomorrow. I have discussed at length with him and he understands; hopefully he will do well. Ghanshyam Garcia DO
== END 2017-07-20 14:22 | disposition left against medical advice (07) | DRG 427 ==
LOC: ED 11:27 → ERH 16:00 → PSYC 16:57
PROVIDERS: ADMIT Psychiatry & Neurology Psychiatry; ATTEND Psychiatry & Neurology Psychiatry
DX: F43.23 Adjustment disorder with mixed anxiety and depressed mood (principal); J44.9 Chronic obstructive pulmonary disease, unspecified; M48.00 Spinal stenosis, site unspecified; Z87.891 Personal history of nicotine dependence

== ENCOUNTER 2018-01-30 17:42 | Inpatient (IN) | payer MEDICAID ==
[2018-01-30 18:21] LABS: ALB/GLOB RATIO 1.3 (1.1-1.8); ALBUMIN 4.7 g/dL (3.0-4.8); ALT/SGPT 34 U/L (7-56); AST/SGOT 26 U/L (17-59); BLOOD UREA NITROGEN 10 mg/dL (7-21); CALCIUM 9.6 mg/dL (8.4-10.5); GFR NON-AFRICAN AMERICAN > 60; HDL CHOLESTEROL 45 mg/dL (29-60)
[2018-01-30 18:23] LABS: BASO # 0.03 K/mm3 (0.0-2.0); BASO % 0.3 % (0.0-3.0); EOS # 0.4 (0.0-0.7); EOS % 3.8 % (1.5-5.0); GRAN # 6.89 (1.4-6.5); GRAN % 69.4 % (50.0-68.0); HEMOGLOBIN 15.6 g/dL (14.0-18.0); LYMPH # 1.8 (1.2-3.4); LYMPH % 18.4 % (22.0-35.0); MEAN CELL VOLUME 89.1 fl (80.0-105.0); MEAN CORPUSCULAR HEMOGLOBIN 30.3 pg (25.0-35.0); MEAN PLATELET VOLUME 10.8 fl (7.0-11.0); MONO # 0.8 (0.1-0.6); MONO % 8.1 % (1.0-6.0); RBC 5.15 10^6/uL (3.5-6.1); RED CELL DISTRIBUTION WIDTH 13.8 % (11.5-14.5); WHITE BLOOD COUNT 9.9 10^3/ul (4.5-11.0)
[2018-01-30] MEDS: Sodium Chloride 0.9% 1,000 ML IV SCH (18:26)
--- NOTE | 2018-01-30 18:26 | CT ---
Date of service: 01/30/2018 PROCEDURE: CT HEAD WITHOUT CONTRAST. HISTORY: Code Stroke COMPARISON: None available. TECHNIQUE: Axial computed tomography images were obtained through the head/brain without intravenous contrast. Radiation dose: Total exam DLP = 981.64 mGy-cm. This CT exam was performed using one or more of the following dose reduction techniques: Automated exposure control, adjustment of the mA and/or kV according to patient size, and/or use of iterative reconstruction technique. FINDINGS: HEMORRHAGE: No intracranial hemorrhage. BRAIN: Normal crabtree-white matter differentiation and density are appreciated throughout the cerebrum and cerebellum with the brainstem appearing unremarkable as well. There is no mass effect. There is no suspicious extra-axial fluid collection and the midline brain anatomy appears diffusely unremarkable. VENTRICLES: Unremarkable. No hydrocephalus. CALVARIUM: Unremarkable. PARANASAL SINUSES: Extensive multifocal bilateral maxillary and ethmoid sinusitis appreciated as well as at the left sphenoid sinus. MASTOID AIR CELLS: Unremarkable as visualized. No inflammatory changes. OTHER FINDINGS: None. IMPRESSION: No acute or subacute intracranial abnormality appreciated at this time. Incidental multifocal sinusitis as discussed above. Findings discussed with Dr. Wade with written down and read back verification 01/30/2018 6:21 p.m..
[2018-01-30 18:31] LABS: LDL CHOLESTEROL 68 mg/dL (0-129)
[2018-01-30 18:32] LABS: INR 1.01; PARTIAL THROMBOPLASTIN TIME 31.2 Seconds (25.1-36.5); PROTHROMBIN TIME 11.5 SECONDS (9.4-12.5)
[2018-01-30 18:35] LABS: TROPONIN I < 0.01 ng/mL
[2018-01-30] MEDS ORDERED: Albuterol-Ipratrop 3 mg / 0.5 (3 ml) UD IH STA ×3 (18:36→21:47)
[2018-01-30] MEDS ORDERED: DiphenhydrAMINE 50 mg/ml Inj IVP ONE ×3 (18:46→20:53)
--- NOTE | 2018-01-30 18:48 | RAD ---
Date of service: 01/30/2018 HISTORY: Code Stroke COMPARISON: Chest radiograph 01/30/2018. FINDINGS: LUNGS: No active pulmonary disease. PLEURA: No significant pleural effusion identified, no pneumothorax apparent. CARDIOVASCULAR: Normal. OSSEOUS STRUCTURES: No significant abnormalities. VISUALIZED UPPER ABDOMEN: Normal. OTHER FINDINGS: None. IMPRESSION: No interval acute cardiopulmonary disease appreciated.
--- NOTE | 2018-01-30 20:22 | ED PDOC ---
Arrival/HPI - General Chief Complaint: Weakness/Neurological Deficit Time Seen by Provider: 01/30/18 17:48 Historian: Patient, Family - History of Present Illness Narrative History of Present Illness (Text): 01/30/18 20:11 Patient is a 52 yo male, reports past medical history of COPD, presents to the Emergency Department complaining of cough and shortness of breath for the past three days. He denies fevers, he denies hemoptysis, he denies chest pain, he denies nausea or vomiting. Patient denies any calf swelling. He denies any pain with deep breaths. Patient took inhaler and tylenol for his cough and congestion today. He states that three hours prior to arrival he was "talking to a friend and I started to have a tough time talking". He reports that he has some cramping thats developed in both lower legs. He reports he had a similar episode of this last week which lasted "for a few minutes then went away." He denies any new medications but admits that he also takes Welbutrin and Trazadone and "I take the Trazodone on and off". He denies any suicidal ideation or overdose. Past Medical History - Infectious Disease Hx of Infectious Diseases: None - Cardiac Hx Cardiac Disorders: No - Pulmonary Hx Respiratory Disorders: Yes Hx Asthma: Yes Hx Chronic Obstructive Pulmonary Disease (COPD): Yes - Neurological Hx Neurological Disorder: No - HEENT Hx HEENT Disorder: No - Renal Hx Renal Disorder: No - Endocrine/Metabolic Hx Endocrine Disorders: No - Hematological/Oncological Hx Blood Disorders: No - Integumentary Hx Dermatological Disorder: No - Musculoskeletal/Rheumatological Hx Musculoskeletal Disorders: Yes Hx Spinal Stenosis: Yes - Gastrointestinal Hx Gastrointestinal Disorders: No - Genitourinary/Gynecological Hx Genitourinary Disorders: No - Psychiatric Hx Psychophysiologic Disorder: Yes Hx Anxiety: Yes Hx Depression: Yes Hx Substance Use: Yes - Surgical History Hx Cardiac Catheterization: Yes - Anesthesia Hx Anesthesia: No Hx Anesthesia Reactions: No Hx Malignant Hyperthermia: No Family/Social History Family/Social History: Unknown Family HX Smoking Status: Former Smoker Hx Alcohol Use: No Hx Substance Use: Yes Allergies/Home Meds Allergies/Adverse Reactions: Allergies No Known Allergies Allergy (Verified 07/19/17 18:13) Home Medications: Home Meds Medication Instructions Recorded Confirmed Albuterol HFA [Ventolin HFA 90 2 puff IH PRN PRN 01/30/18 01/30/18 mcg/actuation (8 g)] Famotidine 20 mg PO PRN 01/30/18 01/30/18 Fluticasone/Salmeterol 1 each IH PRN PRN 01/30/18 01/30/18 [Fluticasone-Salmeterol 232-14] traZODone [Desyrel] 0 mg PO 01/30/18 Review of Systems - Review of Systems Constitutional: Fevers. absent: Fatigue Eyes: absent: Vision Changes ENT: Sore Throat, Rhinorrhea, Sinus Congestion. absent: Hearing Changes, Voice Changes Respiratory: SOB, Cough, Sputum, Wheezing Cardiovascular: [place]. absent: Chest Pain, Palpitations, Edema, Calf Pain Gastrointestinal: absent: Abdominal Pain, Nausea, Vomiting Genitourinary Male: absent: Dysuria, Frequency Musculoskeletal: absent: Back Pain Skin: absent: Rash Neurological: Other (facial spasms). absent: Headache, Dizziness, Focal Weakness Endocrine: absent: Polyuria Hemo/Lymphatic: absent: Easy Bleeding Psychiatric: absent: Depression Physical Exam Vital Signs Reviewed: Yes Vital Signs Temp Pulse Resp BP Pulse Ox 01/30/18 21:22 99.2 F 107 H 20 134/82 96 01/30/18 19:27 112 H 18 162/95 H 97 01/30/18 18:00 98.4 F 110 H 20 140/98 H 99 Temperature: Afebrile Respiratory Rate: Tachypneic Appearance: Positive for: Uncomfortable Pain Distress: Mild Mental Status: Positive for: Alert and Oriented X 3 - Systems Exam Head: Present: Atraumatic Pupils: Present: PERRL Extroacular Muscles: Present: EOMI Conjunctiva: No: Icteric Ears: No: Erythema Mouth: Present: Dry, Other (puckering of laps, tongue and lip and buccal muscle spasms) Pharnyx: No: Peritonsilar Swelling, Uvular Deviation, Muffled/Hoarse Voice, Strider, Soft Palate/Uvular Edema Nose (Internal): Present: Normal Inspection, No Active Bleeding Neck: Present: Normal Range of Motion. No: Meningeal Signs Respiratory/Chest: Present: Wheezes. No: Respiratory Distress, Accessory Muscle Use, Retracting, Rhonchi Cardiovascular: Present: Tachycardic Abdomen: No: Tenderness, Distention Rectal: No: Gross Blood Back: No: CVA Tenderness Upper Extremity: No: Cyanosis, Edema Lower Extremity: Present: Neurovascularly Intact. No: Edema, CALF TENDERNESS Neurological: Present: Other (no pronator drift, equal strength and grasps in upper extremity, motor exam intact in lower extremities, reflexes symmetric and intact) Skin: Present: Warm Psychiatric: Present: Alert, Normal Insight, Normal Concentration. No: Anxious , Agitated, Depressed Mood, Suicidal Ideation, Homicidal Ideation, Intoxicated Medical Decision Making ED Course and Treatment: 01/30/18 20:25 Patient presents with family. On initial exam, he describes sudden onset of difficulty speaking three hours prior to arrival. CODE STROKE was called based on this history. On exam, however, patient noted to have facial muscle spasms. No stridor or respiratory distress. No headache. No visual symptoms. No weakness noted to arms or legs although patient complains of muscle cramping. He is also wheezing, but not in severe respiratory distress. Neurology code stroke team consulted. CT head negative. On return from CT, his facial spasms improved somewhat than returned. I suspect possible component of dystonia as patient takes Trazodone and admits to varying compliance with this. Benadryl boluses were given twice with resolution of symptoms. Give exam and resolution of symptoms, I feel on re-exam that his symptoms are not related to TIA or CVA, more likely dystonia, thus he is not a tpa candidate. As facial spasms resolved he is cleared for po intake at this time. Nebulizers and steroids ordered for wheezing. 01/30/18 22:02 Facial spasms returned, not as severe but consistent with dystonia. No lethargy. Alert, oriented. Additional benadryl ordered. Wheezing persistent. Additional nebulizer ordered. Case d/w hospitalist team, accepts admission to hospitalist service. - Lab Interpretations Lab Results: 01/30/18 18:00 01/30/18 18:00 Lab Results 01/30/18 19:33: Blood Type Confirm O POSITIVE 01/30/18 18:00: Blood Type O POSITIVE, Antibody Screen Negative, BBK History Checked No verified bt 01/30/18 18:00: Sodium 142, Potassium 4.1, Chloride 105, Carbon Dioxide 28, Anion Gap 13, BUN 10, Creatinine 1.2, Est GFR ( Amer) > 60, Est GFR (Non- Af Amer) > 60, Random Glucose 140 H, Calcium 9.6, Total Bilirubin 1.2, AST 26, ALT 34, Alkaline Phosphatase 75, Troponin I < 0.01, Total Protein 8.3, Albumin 4.7, Globulin 3.6, Albumin/Globulin Ratio 1.3, Triglycerides 100, Cholesterol 148, LDL Cholesterol Direct 68, HDL Cholesterol 45 01/30/18 18:00: PT 11.5, INR 1.01, APTT 31.2 01/30/18 18:00: WBC 9.9 D, RBC 5.15, Hgb 15.6, Hct 45.9, MCV 89.1, MCH 30.3, MCHC 34.0, RDW 13.8, Plt Count 287, MPV 10.8, Gran % 69.4 H, Lymph % (Auto) 18.4 L, Ector % (Auto) 8.1 H, Eos % (Auto) 3.8, Baso % (Auto) 0.3, Gran # 6.89 H , Lymph # (Auto) 1.8, Ector # (Auto) 0.8 H, Eos # (Auto) 0.4, Baso # (Auto) 0.03 - RAD Interpretation Radiology Orders: 01/30/18 18:02 HEAD W/O (CODE STROKE) [CT] Stat CHEST PORTABLE [RAD] Stat - EKG Interpretation EKG Interpretation (Text): 01/30/18 20:30 EKG at 1831 normal sinus rhythm rate of 100, no acute st elevations Interpreted by ED Physician: Yes Type: 12 lead EKG - Medication Orders Current Medication Orders: Albuterol/Ipratropium (Duoneb 3 Mg/0.5 Mg (3 Ml) Ud) 3 ml IH [id number] DAVID Sodium Chloride (Sodium Chloride 0.9%) 1,000 mls @ 100 mls/hr IV .Q10H DAVID Last Admin: 01/30/18 18:26 Dose: 100 mls/hr eMAR Start Stop Document 01/30/18 18:26 OCS (Rec: 01/30/18 18:26 OCS [id number]) Intravenous Solution Start Date 01/30/18 Start Time 18:26 Azithromycin (Zithromax 500mg In Ns) 500 mg in 250 mls @ 167 mls/hr IVPB DAILY DAVID PRN Reason: Protocol Methylprednisolone (Solu-Medrol) 20 mg IVP Q12 DAVID Last Admin: 01/30/18 22:01 Dose: Not Given Discontinued Medications Albuterol/Ipratropium (Duoneb 3 Mg/0.5 Mg (3 Ml) Ud) 3 ml IH STAT STA Stop: 01/30/18 18:37 Last Admin: 01/30/18 20:13 Dose: 3 ml Albuterol/Ipratropium (Duoneb 3 Mg/0.5 Mg (3 Ml) Ud) 3 ml IH STAT STA Stop: 01/30/18 21:43 Last Admin: 01/30/18 22:02 Dose: 3 ml Albuterol/Ipratropium (Duoneb 3 Mg/0.5 Mg (3 Ml) Ud) 3 ml IH STAT STA Stop: 01/30/18 21:48 Last Admin: 01/30/18 22:01 Dose: Not Given Aspirin (Aspirin Chewable) 81 mg PO STAT STA Stop: 01/30/18 21:42 Last Admin: 01/30/18 22:03 Dose: 81 mg Diphenhydramine HCl (Benadryl) 25 mg IVP ONCE ONE Stop: 01/30/18 18:47 Last Admin: 01/30/18 18:49 Dose: 25 mg IVP Administration Document 01/30/18 18:49 OCS (Rec: 01/30/18 18:49 [id number] Charges for Administration # of IVP Administrations 1 Diphenhydramine HCl (Benadryl) 25 mg IVP ONCE ONE Stop: 01/30/18 19:39 Last Admin: 01/30/18 19:46 Dose: 25 mg IVP Administration Document 01/30/18 19:46 OCS (Rec: 01/30/18 19:46 [id number] Charges for Administration # of IVP Administrations 1 Diphenhydramine HCl (Benadryl) 25 mg IVP ONCE ONE Stop: 01/30/18 20:54 Last Admin: 01/30/18 21:59 Dose: 25 mg Diphenhydramine HCl (Benadryl) 25 mg IVP STAT STA Stop: 01/30/18 21:00 Last Admin: 01/30/18 22:03 Dose: Not Given Ceftriaxone Sodium (Rocephin 1 Gram Ivpb) 1 gm in 100 mls @ 200 mls/hr IVPB ONCE STA PRN Reason: Protocol Stop: 01/30/18 21:22 Last Admin: 01/30/18 21:59 Dose: 200 mls/hr Lorazepam (Ativan) 1 mg IVP ONCE STA PRN Reason: Protocol Stop: 01/30/18 21:19 Last Admin: 01/30/18 21:59 Dose: 1 mg Methylprednisolone (Solu-Medrol) 125 mg IVP STAT STA Stop: 01/30/18 18:37 Last Admin: 01/30/18 20:12 Dose: 125 mg IVP Administration Document 01/30/18 20:12 OCS (Rec: 01/30/18 20:12 OCS [id number]) Charges for Administration # of IVP Administrations 1 NIHSS Scale ([place]) Time Performed: 18:00 - How Severe is the Stoke Baseline Level of Consciousness: 0=Alert LOC to Questions: 0=Both comments correct LOC to commands: 0=Obeys both correctly Best Gaze: 0=Normal Visual: 0=No visual loss Facial: 1=Minor asymmetry Motor Arm - Left: 0=No drift Motor Arm - Right: 0=No drift Motor Leg - Left: 0=No drift Motor Leg - Right: 0=No drift Limb Ataxia: 0=Absent Sensory: 0=Normal Best Language: 0=No aphasia Dysarthia: 0=Normal articulation Extinction & Inattention (Neglect): 0=Normal, no object Score: 1 Risk Level: Minor Stroke Risk rTPA Inclusion/Exclusion - Refusal of Treatment Patient Refused Treatment: Yes - Inclusion Criteria for Altepase The Clinical Diagnosis of Ischemic Stroke That is Causing a Potentially Disabling Neurological Deficit: No - Warning to TPA With Conditions Condition: Rapid Improvement Disposition/Present on Arrival - Present on Arrival Any Indicators Present on Arrival: No History of DVT/PE: No History of Uncontrolled Diabetes: No Urinary Catheter: No History of Decub. Ulcer: No History Surgical Site Infection Following: None - Disposition Have Diagnosis and Disposition been Completed?: Yes Diagnosis: Dystonic drug reaction, Facial spasm, COPD exacerbation, Sinusitis Disposition: HOSPITALIZED Disposition Time: 20:00 Patient Plan: Admission Patient Problems: Current Active Problems Problem Status Onset COPD exacerbation Acute Dystonic drug reaction Acute Facial spasm Acute Sinusitis Acute Condition: FAIR Referrals: Izzy Metcalf MD [Primary Care Provider] - Follow up with primary Forms: [employer] (Armenian)
[2018-01-30] MEDS ORDERED: cefTRIAXone 1 gm 1 GM/100 ML BAG IVPB STA (20:53)
[2018-01-30] MEDS ORDERED: DiphenhydrAMINE 50 mg/ml Inj IVP STA (20:59)
[2018-01-30] MEDS: MethylPREDNISolone 40 mg Vial IVP SCH (22:01)
[2018-01-30] MEDS ORDERED: Albuterol-Ipratrop 3 mg / 0.5 (3 ml) UD IH PRN (22:08)
[2018-01-31] MEDS: Albuterol-Ipratrop 3 mg / 0.5 (3 ml) UD IH SCH ×4 (01:09→19:24)
[2018-01-31 01:53] VITALS: RESP 20; BMI 33.7
--- NOTE | 2018-01-31 02:02 | CP.PCM.HP ---
<Juan Panchal - Last Filed: 01/31/18 05:10> History of Present Illness - History of Present Illness History of Present Illness: Juan Panchal, PGY-1 H&P for Hospitalist Service This is a 53 year old male with PMH of spinal stenosis, depression, anxiety and COPD presenting to ED for facial twitching and leg cramping that began in the afternoon. Patient states he was having difficulty talking around 4pm from the facial twitching and decided to come to the ED. He admits to similar episode last week where he had facial cramping that spontaneously resolved after a few minutes but today's episode lasted longer. Patient also admits to productive yellow cough, SOB and congestion over the past 3 days. He takes trazodone and wellbutrin for depression. At this time, he admits to CP worsened with cough but not deep inspiration, SOB, B/L facial twitching and B/L leg cramping. He denies fevers, chills, nausea, vomiting, headaches, urinary complaints, numbness , tingling, swelling, muscle weakness and recent travel. 12 point ROS noted here , otherwise unremarkable. In ED, code stroke called and head CT negative for acute disease. NIHSS 0. Concern for dystonia from home medications and benadryl given to patient with improvement in symptoms. Duonebs, solumedrol and rocephin given for concern of COPD exacerbation. PMD: Dr. Izzy Metcalf in [place]: occasional drinking, denies smoking and drugs. Quit smoking ten years ago FH: denies All: NKDA Sx: denies surgeries Meds: trazodone, wellbutrin, naproxen, tramadol, cyclobenzaprine Present on Admission - Present on Admission Any Indicators Present on Admission: No Past Patient History - Infectious Disease Hx of Infectious Diseases: None - Past Social History Smoking Status: Former Smoker - CARDIAC Hx Cardiac Disorders: No - PULMONARY Hx Respiratory Disorders: Yes Hx Asthma: Yes Hx Chronic Obstructive Pulmonary Disease (COPD): Yes - NEUROLOGICAL Hx Neurological Disorder: No - HEENT Hx HEENT Problems: No - RENAL Hx Chronic Kidney Disease: No - ENDOCRINE/METABOLIC Hx Endocrine Disorders: No - HEMATOLOGICAL/ONCOLOGICAL Hx Blood Disorders: No - INTEGUMENTARY Hx Dermatological Problems: No - MUSCULOSKELETAL/RHEUMATOLOGICAL Hx Falls: No - GASTROINTESTINAL Hx Gastrointestinal Disorders: No - GENITOURINARY/GYNECOLOGICAL Hx Genitourinary Disorders: No - PSYCHIATRIC Hx Substance Use: No - SURGICAL HISTORY Hx Surgeries: Yes Hx Cardiac Catheterization: Yes - ANESTHESIA Hx Anesthesia: No Hx Anesthesia Reactions: No Hx Malignant Hyperthermia: No Meds Allergies/Adverse Reactions: Allergies Allergy/AdvReac Type Severity Reaction Status Date / Time No Known Allergies Allergy Verified 07/19/17 18:13 Physical Exam - Constitutional Appears: No Acute Distress - Head Exam Head Exam: ATRAUMATIC, NORMAL INSPECTION Additional comments: B/L lower facial muscles are intermittently twitching - Eye Exam Eye Exam: EOMI Pupil Exam: PERRL - ENT Exam ENT Exam: Mucous Membranes Moist - Respiratory Exam Respiratory Exam: absent: Accessory Muscle Use, Respiratory Distress Additional comments: B/L expiratory wheezing are appreciated - Cardiovascular Exam Cardiovascular Exam: Tachycardia, REGULAR RHYTHM, +S1, +S2 - GI/Abdominal Exam GI & Abdominal Exam: Soft. absent: Firm, Guarding - Extremities Exam Extremities exam: Positive for: full ROM, normal capillary refill, normal inspection, pedal pulses present. Negative for: calf tenderness, joint swelling , pedal edema - Neurological Exam Neurological exam: Alert, CN II-XII Intact, Oriented x3 Additional comments: no sensory deficit, muscle strength is 5/5 B/L in upper and lower extremities - Skin Skin Exam: Dry, Normal Color, Warm Results - Vital Signs Recent Vital Signs: Last Vital Signs Temp 99.4 F 01/31/18 01:21 Pulse 108 H 01/31/18 01:21 Resp 20 01/31/18 01:21 BP 139/88 01/31/18 01:21 Pulse Ox 97 01/31/18 00:30 - Labs Result Diagrams: 01/30/18 18:00 01/30/18 18:00 Assessment & Plan - Assessment and Plan (Free Text) Assessment: This is a 53 year old male with PMH of spinal stenosis, depression, anxiety and COPD presenting to ED for facial twitching and leg cramping that began in the afternoon. Patient also has 3 days history of SOB, productive cough and congestion. Will be monitored in medsurg. Plan: B/L facial twitching and leg cramps -unlikely 2/[address] HEAD was negative for acute findings. No sensory or muscle deficits. NIHSS 0 -consider 2/2 medication side effect. Patient on trazodone and wellbutrin, concern for dystonia. -improvement in symptoms with benadryl -artane 2mg daily for dystonia -nursing swallow screen -hold pain and depression meds for now COPD exacerbation -CXR showed no interval change. CT head showed sinusitis -duonebs -solumedrol 20mg IVP q12 -azithromycin Hx of spinal stenosis -Patient on 3 pain medications at home for back pain (cyclobenzaprine, tramadol and naproxen). -Will hold for now due to concern of medication side effects -vallium prn for pain Hx of Depression -holding wellbutrin and trazodone for now due to concern of side effects PPX with pepcid and SCD HHD Patient seen and case discussed with attending, Dr. Ruvalcaba <Margie Ruvalcaba - Last Filed: 01/31/18 06:27> Results - Vital Signs Recent Vital Signs: Last Vital Signs Temp 99.4 F 01/31/18 01:21 Pulse 108 H 01/31/18 01:21 Resp 20 01/31/18 01:21 BP 139/88 01/31/18 01:21 Pulse Ox 97 01/31/18 00:30 - Labs Result Diagrams: 01/30/18 18:00 01/30/18 18:00 Attending/Attestation - Attestation I have personally seen and examined this patient.: Yes I have fully participated in the care of the patient.: Yes I have reviewed all pertinent clinical information: Yes Notes (Text): Etiology of dystonia is not clear, Hold trazdone, flexeril and wellbutrin for now. Start Artane 2 mg daily. May resume flexeril prior to discharge. 01/31/18 06:25
[2018-01-31 07:41] LABS: BASO # 0.01 K/mm3 (0.0-2.0); BASO % 0.1 % (0.0-3.0); GRAN # 9.89 (1.4-6.5); GRAN % 91.3 % (50.0-68.0); HEMOGLOBIN 14.9 g/dL (14.0-18.0); LYMPH # 0.7 (1.2-3.4); LYMPH % 6.8 % (22.0-35.0); MEAN CELL VOLUME 89.3 fl (80.0-105.0); MEAN CORPUSCULAR HEMOGLOBIN 29.6 pg (25.0-35.0); MEAN CORPUSCULAR HGB CONC 33.2 g/dl (31.0-37.0); MEAN PLATELET VOLUME 10.7 fl (7.0-11.0); MONO # 0.2 (0.1-0.6); MONO % 1.8 % (1.0-6.0); PLATELET COUNT 299 10^3/uL (120.0-450.0); RBC 5.03 10^6/uL (3.5-6.1); RED CELL DISTRIBUTION WIDTH 14.1 % (11.5-14.5); WHITE BLOOD COUNT 10.8 10^3/ul (4.5-11.0)
[2018-01-31 08:10] LABS: ALB/GLOB RATIO 1.3 (1.1-1.8); ALBUMIN 4.6 g/dL (3.0-4.8); ALT/SGPT 29 U/L (7-56); AST/SGOT 33 U/L (17-59); BLOOD UREA NITROGEN 12 mg/dL (7-21); CALCIUM 9.6 mg/dL (8.4-10.5); GFR NON-AFRICAN AMERICAN > 60
[2018-01-31 09:15] LABS: BAND 1 % (0-2); LYMPHOCYTE 3 % (22.0-35.0); MONOCYTE 1 % (1.0-6.0); NEUTROPHIL 95 % (50.0-70.0); PLATELET ESTIMATE NORMAL (NORMAL)
[2018-01-31] MEDS ORDERED: Azithromycin 500MG/NS 250ml 500 MG/250 ML BAG IVPB SCH (10:00)
[2018-01-31] MEDS: Sodium Chloride 0.9% 1,000 ML IV SCH (10:03)
[2018-01-31] MEDS: MethylPREDNISolone 40 mg Vial IVP SCH ×2 (10:03→21:08)
--- NOTE | 2018-01-31 20:04 | CP.PCM.CON ---
History of Present Illness - History of Present Illness History of Present Illness: Neurology Consultation Note: Mr. Lozada is a 53-year-old man with a past medical history of spinal stenosis , depression (on trazodone and Wellbutrin), anxiety and COPD, who presented to the ED yesterday complaining of facial cramping and pain, along with leg cramping that began the previous day and was intermittent. He developed difficulty with speech due to the facial pain and cramping. This was thought to be a dystonic reaction initially. So, the patient was given benadryl and it appears that the symptoms resolved. Non-contrast CT scan of the head was normal. Review of Systems - Review of Systems All systems: reviewed and no additional remarkable complaints except Past Patient History - Infectious Disease Hx of Infectious Diseases: None - Past Social History Smoking Status: Former Smoker - CARDIAC Hx Cardiac Disorders: No - PULMONARY Hx Respiratory Disorders: Yes Hx Asthma: Yes Hx Chronic Obstructive Pulmonary Disease (COPD): Yes - NEUROLOGICAL Hx Neurological Disorder: No - HEENT Hx HEENT Problems: No - RENAL Hx Chronic Kidney Disease: No - ENDOCRINE/METABOLIC Hx Endocrine Disorders: No - HEMATOLOGICAL/ONCOLOGICAL Hx Blood Disorders: No - INTEGUMENTARY Hx Dermatological Problems: No - MUSCULOSKELETAL/RHEUMATOLOGICAL Hx Falls: No - GASTROINTESTINAL Hx Gastrointestinal Disorders: No - GENITOURINARY/GYNECOLOGICAL Hx Genitourinary Disorders: No - PSYCHIATRIC Hx Substance Use: No - SURGICAL HISTORY Hx Surgeries: Yes Hx Cardiac Catheterization: Yes - ANESTHESIA Hx Anesthesia: No Hx Anesthesia Reactions: No Hx Malignant Hyperthermia: No Meds Allergies/Adverse Reactions: Allergies Allergy/AdvReac Type Severity Reaction Status Date / Time No Known Allergies Allergy Verified 07/19/17 18:13 - Medications Medications: Current Medications Albuterol/Ipratropium (Duoneb 3 Mg/0.5 Mg (3 Ml) Ud) 3 ml IH [id number] DAVID Last Admin: 01/31/18 19:24 Dose: 3 ml Albuterol/Ipratropium (Duoneb 3 Mg/0.5 Mg (3 Ml) Ud) 3 ml IH Q2H PRN PRN Reason: Shortness of Breath Azithromycin (Zithromax) 250 mg PO DAILY DAVID PRN Reason: Protocol Bupropion HCl (Wellbutrin Xl) 150 mg PO DAILY DAVID Diazepam (Valium) 5 mg PO BID PRN; Protocol PRN Reason: Pain, moderate (4-7) Famotidine (Pepcid) 40 mg PO HS DAVID Sodium Chloride (Sodium Chloride 0.9%) 1,000 mls @ 100 mls/hr IV .Q10H DAVID Last Admin: 01/31/18 10:03 Dose: 100 mls/hr Methylprednisolone (Solu-Medrol) 20 mg IVP Q12 DAVID Last Admin: 01/31/18 10:03 Dose: 20 mg Quetiapine Fumarate (Seroquel) 25 mg PO HS DAVID PRN Reason: Protocol Trazodone HCl (Desyrel) 100 mg PO HS PRN PRN Reason: Insomnia Trihexyphenidyl HCl (Artane) 2 mg PO DAILY [facility] Last Admin: 01/31/18 10:02 Dose: 2 mg Physical Exam - Neurological Exam Neurological exam: Alert, CN II-XII Intact, Normal Gait, Oriented x3, Reflexes Normal Results - Vital Signs Recent Vital Signs: Last Vital Signs Temp 98.5 F 01/31/18 14:00 Pulse 107 H 01/31/18 14:00 Resp 20 01/31/18 14:00 BP 148/88 01/31/18 14:00 Pulse Ox 97 01/31/18 14:00 - Labs Result Diagrams: 01/31/18 06:45 01/31/18 06:45 Labs: Laboratory Results - last 24 hr 01/31/18 01/31/18 06:45 06:45 WBC 10.8 RBC 5.03 Hgb 14.9 Hct 44.9 MCV 89.3 MCH 29.6 MCHC 33.2 RDW 14.1 Plt Count 299 MPV 10.7 Gran % 91.3 H Lymph % (Auto) 6.8 L [place] % (Auto) 1.8 Eos % (Auto) 0.0 L Baso % (Auto) 0.1 Gran # 9.89 H Lymph # (Auto) 0.7 L [place] # (Auto) 0.2 Eos # (Auto) 0.0 Baso # (Auto) 0.01 Neutrophils % (Manual) 95 H Band Neutrophils % 1 Lymphocytes % (Manual) 3 L Monocytes % (Manual) 1 Platelet Evaluation Normal Sodium 142 Potassium 4.5 Chloride 106 Carbon Dioxide 25 Anion Gap 15 BUN 12 Creatinine 1.1 Est GFR ( Amer) > 60 Est GFR (Non-Af Amer) > 60 Random Glucose 142 H Calcium 9.6 Total Bilirubin 0.5 AST 33 ALT 29 Alkaline Phosphatase 72 Total Protein 8.0 Albumin 4.6 Globulin 3.5 Albumin/Globulin Ratio 1.3 Assessment & Plan (1) Dystonic drug reaction Assessment and Plan: The patient is on multiple psychiatric and pain medications that can cause dystonia. These have been held, and he was given benadryl. He will follow up with primary care and psychiatry for adjustment of his medications. There is no further neurological change. Thank you. Status: Acute
--- NOTE | 2018-01-31 21:13 | CARD ---
APPROVED REPORT Date of service: 01/30/2018 EKG Measurement Heart [id number] <Conclusion> Poor data quality, interpretation may be adversely affected Normal sinus rhythm Normal ECG
[2018-02-01] MEDS: Sodium Chloride 0.9% 1,000 ML IV SCH (00:15)
[2018-02-01] MEDS: Albuterol-Ipratrop 3 mg / 0.5 (3 ml) UD IH SCH ×2 (01:04→07:26)
--- NOTE | 2018-02-01 01:58 | CON ---
DATE: 01/31/2018 HISTORY OF PRESENT ILLNESS: Shortly, the patient is 53-year-old male with reported history of depression and anxiety. The patient had one admission to the psychiatric inpatient unit here in [place] in 07/2017. The patient signed against medical advice. The patient's family history significant for his son committing suicide. The patient always feels depressed and anxious in January. This time, patient brought himself to the hospital for evaluation of inability to talk. Also, the patient described the symptoms that his jaw is locked. The patient also has COPD. The patient also complained cough and shortness of breath. Psych consult was called for evaluation of medications and possible EPS symptoms. The patient is very familiar to this scenario writer from the previous admission to the psychiatric inpatient unit. The patient presented to be alert, oriented, and pleasant. Speech was overproductive and loud. The patient reports that recently his medications were adjusted by his outpatient psychiatrist at [facility]. The patient reported that he is compliant with the medications. The patient does not remember the medication list of [facility], but reported that he fills medication in [facility], . As per report, the patient was on Wellbutrin 300 mg daily. The patient also was on trazodone 100 mg at the nighttime. The patient also was on haloperidol 10 mg at the nighttime. The patient filled that medication in 01/22/2018. The patient reports that his compliance with the medication is good. He often see his therapist and psychiatrist. The patient reported that January is very hard month for him because all of the birthdays and the patient's son's birthday also in January. The patient adamantly denied thoughts of harming himself or others. The patient reported that he hears voices. The patient reported that the voices are preventing him from sleep. PHYSICAL EXAMINATION: VITAL SIGNS: Reviewed. Temperature 98.5, pulse is 107, blood pressure 148/88, respirations 20, and oxygen saturation is 97%. MEDICATIONS: Reviewed. The patient is on DuoNeb, Zithromax. Wellbutrin can be resumed, but lesser dose 150. The patient was on Valium 5 mg twice a day p.r.n., Pepcid, and Solu-Medrol. This scenario writer discontinued haloperidol. Seroquel could be better choice for the patient because less chance of EPS symptoms, also mood stabilization as well as insomnia. Trazodone can be given as needed for insomnia. The patient is on Artane, which was started by medical team. LABORATORY DATA: Reviewed. Most recent was from today. Toxicology positive for cannabis. Serology, RPR negative. MENTAL STATUS EXAM: The patient presented to be alert, pleasant, and cooperative. Speech was overproductive and loud. Mood described "January is very tough month for me." Affect was constricted, but reactive. Mood congruent. Thought process seems to be over inclusive, but not circumstantial or tangential. Thought content: Patient denied thoughts of harming himself or others. Patient reported that he hears voices at the nighttime. Insight and judgment seem to be fair. Impulses are well controlled. IMPRESSION: As per history, major depressive disorder, posttraumatic stress disorder, extrapyramidal symptoms cannot be excluded. PLAN: Wellbutrin was decreased to 150 mg daily. The patient is on Artane. The patient also was on haloperidol, which was discontinued. Seroquel 25 mg at the nighttime. Trazodone can be continued only as needed. The patient has followup appointment at [facility]. This scenario writer will follow up and advise accordingly. The patient also is on Benadryl which could help the patient with the EPS symptoms. Discussed with the attending, Dr. Whitney. Should you have any questions, give me a call back. Thank you very much for letting me participate in care of your patient. Eva Casanova MD
[2018-02-01 07:59] LABS: BASO # 0.01 K/mm3 (0.0-2.0); BASO % 0.1 % (0.0-3.0); EOS % 0.1 % (1.5-5.0); GRAN # 13.83 (1.4-6.5); GRAN % 81.7 % (50.0-68.0); HEMOGLOBIN 14.3 g/dL (14.0-18.0); LYMPH # 1.8 (1.2-3.4); LYMPH % 10.4 % (22.0-35.0); MEAN CELL VOLUME 89.1 fl (80.0-105.0); MEAN CORPUSCULAR HEMOGLOBIN 29.9 pg (25.0-35.0); MEAN CORPUSCULAR HGB CONC 33.5 g/dl (31.0-37.0); MEAN PLATELET VOLUME 10.7 fl (7.0-11.0); MONO # 1.3 (0.1-0.6); MONO % 7.7 % (1.0-6.0); RBC 4.79 10^6/uL (3.5-6.1); RED CELL DISTRIBUTION WIDTH 14.4 % (11.5-14.5); WHITE BLOOD COUNT 16.9 10^3/ul (4.5-11.0)
[2018-02-01 08:17] LABS: ALB/GLOB RATIO 1.3 (1.1-1.8); ALBUMIN 4.5 g/dL (3.0-4.8); ALT/SGPT 31 U/L (7-56); AST/SGOT 25 U/L (17-59); BLOOD UREA NITROGEN 14 mg/dL (7-21); CALCIUM 9.4 mg/dL (8.4-10.5); GFR NON-AFRICAN AMERICAN > 60
[2018-02-01 08:45] VITALS: BP 138/83; PULSE 84; TEMP 98.4; O2SAT 94
[2018-02-01] MEDS: MethylPREDNISolone 40 mg Vial IVP SCH (10:00)
[2018-02-01] MEDS ORDERED: buPROPion 150 mg/24 Hours XL Tab PO SCH (10:00)
--- NOTE | 2018-02-01 19:20 | CP.PCM.DIS ---
<Brayan Velasquez - Last Filed: 02/01/18 19:26> Provider - Provider Date of Admission: 01/30/18 20:45 Attending physician: Yariel Hughes MD Primary care physician: Izzy Metcalf MD Consults: psyc Time Spent in preparation of Discharge (in minutes): 45 Diagnosis - Discharge Diagnosis (1) COPD exacerbation Status: Acute Priority: Medium (2) Dystonic drug reaction Status: Acute Priority: High (3) Facial spasm Status: Acute Priority: High Hospital Course - Lab Results Lab Results: Micro Results 01/30/18 21:30 Blood Blood Culture - Preliminary NO GROWTH AFTER 24 HOURS 01/30/18 21:00 Blood Blood Culture - Preliminary NO GROWTH AFTER 24 HOURS Most Recent Lab Values WBC 16.9 10^3/ul (4.5-11.0) H D 02/01/18 07:30 RBC 4.79 10^6/uL (3.5-6.1) 02/01/18 07:30 Hgb 14.3 g/dL (14.0-18.0) 02/01/18 07:30 Hct 42.7 % (42.0-52.0) 02/01/18 07:30 MCV 89.1 fl (80.0-105.0) 02/01/18 07:30 MCH 29.9 pg (25.0-35.0) 02/01/18 07:30 MCHC 33.5 g/dl (31.0-37.0) 02/01/18 07:30 RDW 14.4 % (11.5-14.5) 02/01/18 07:30 Plt Count 302 10^3/uL (120.0-450.0) 02/01/18 07:30 MPV 10.7 fl (7.0-11.0) 02/01/18 07:30 Gran % 81.7 % (50.0-68.0) H 02/01/18 07:30 Lymph % (Auto) 10.4 % (22.0-35.0) L 02/01/18 07:30 [place] % (Auto) 7.7 % (1.0-6.0) H 02/01/18 07:30 Eos % (Auto) 0.1 % (1.5-5.0) L 02/01/18 07:30 Baso % (Auto) 0.1 % (0.0-3.0) 02/01/18 07:30 Gran # 13.83 (1.4-6.5) H 02/01/18 07:30 Lymph # (Auto) 1.8 (1.2-3.4) 02/01/18 07:30 [place] # (Auto) 1.3 (0.1-0.6) H 02/01/18 07:30 Eos # (Auto) 0.0 (0.0-0.7) 02/01/18 07:30 Baso # (Auto) 0.01 K/mm3 (0.0-2.0) 02/01/18 07:30 Neutrophils % (Manual) 95 % (50.0-70.0) H 01/31/18 06:45 Band Neutrophils % 1 % (0-2) 01/31/18 06:45 Lymphocytes % (Manual) 3 % (22.0-35.0) L 01/31/18 06:45 Monocytes % (Manual) 1 % (1.0-6.0) 01/31/18 06:45 Platelet Evaluation Normal (NORMAL) 01/31/18 06:45 PT 11.5 SECONDS (9.4-12.5) 01/30/18 18:00 INR 1.01 01/30/18 18:00 APTT 31.2 Seconds (25.1-36.5) 01/30/18 18:00 Sodium 141 mmol/L (132-148) 02/01/18 07:30 Potassium 4.3 mmol/L (3.6-5.0) 02/01/18 07:30 Chloride 107 mmol/L (98-107) 02/01/18 07:30 Carbon Dioxide 25 mmol/L (21-33) 02/01/18 07:30 Anion Gap 14 (10-20) 02/01/18 07:30 BUN 14 mg/dL (7-21) 02/01/18 07:30 Creatinine 1.0 mg/dl (0.8-1.5) 02/01/18 07:30 Est GFR ( Amer) > 60 02/01/18 07:30 Est GFR (Non-Af Amer) > 60 02/01/18 07:30 Random Glucose 112 mg/dL (70-110) H 02/01/18 07:30 Hemoglobin A1c 5.4 % (4.2-6.5) 01/30/18 18:00 Calcium 9.4 mg/dL (8.4-10.5) 02/01/18 07:30 Total Bilirubin 0.7 mg/dL (0.2-1.3) 02/01/18 07:30 AST 25 U/L (17-59) 02/01/18 07:30 ALT 31 U/L (7-56) 02/01/18 07:30 Alkaline Phosphatase 68 U/L (38-126) 02/01/18 07:30 Troponin I < 0.01 ng/mL 01/30/18 18:00 Total Protein 7.8 g/dL (5.8-8.3) 02/01/18 07:30 Albumin 4.5 g/dL (3.0-4.8) 02/01/18 07:30 Globulin 3.3 gm/dL 02/01/18 07:30 Albumin/Globulin Ratio 1.3 (1.1-1.8) 02/01/18 07:30 Triglycerides 100 mg/dL (35-160) 01/30/18 18:00 Cholesterol 148 mg/dL (130-200) 01/30/18 18:00 LDL Cholesterol Direct 68 mg/dL (0-129) 01/30/18 18:00 HDL Cholesterol 45 mg/dL (29-60) 01/30/18 18:00 Blood Type O POSITIVE 01/30/18 18:00 Blood Type Confirm O POSITIVE 01/30/18 19:33 Antibody Screen Negative 01/30/18 18:00 BBK History Checked No verified bt 01/30/18 18:00 - Hospital Course Hospital Course: Pt is a 53 year old male with PMH of spinal stenosis, depression, anxiety and COPD presenting to ED for facial twitching and leg cramping. He admits to similar episode last week where he had facial cramping that spontaneously resolved after a few minutes. Patient also admits to productive yellow cough, SOB and congestion over the past 3 days. He takes trazodone and wellbutrin for depression. In ED, code stroke called and head CT negative for acute disease. Concern for dystonia from home medications and benadryl given to patient with improvement in symptoms. Psyc recommended decreasing the dose of Wellbutrin at this time. Adding Seroquel. The facial twitching is most likely due to haloperidol. Pt advised to follow up with out pt psyc. - Date & Time of H&P Date of H&P: 02/01/18 Time of H&P: 07:00 Discharge Exam - Head Exam Head Exam: ATRAUMATIC, NORMAL INSPECTION - Eye Exam Eye Exam: EOMI - ENT Exam ENT Exam: Mucous Membranes Moist - Respiratory Exam Respiratory Exam: NORMAL BREATHING PATTERN - Cardiovascular Exam Cardiovascular Exam: REGULAR RHYTHM, +S1, +S2 - GI/Abdominal Exam GI & Abdominal Exam: Unremarkable - Extremities Exam Extremities exam: pedal pulses present - Neurological Exam Neurological exam: Alert, Oriented x3 - Psychiatric Exam Psychiatric exam: Normal Affect, Normal Mood - Skin Skin Exam: Dry, Intact, Warm Discharge Plan - Discharge Medications Prescriptions: Albuterol HFA [Ventolin HFA 90 mcg/actuation (8 g)] 2 puff IH PRN PRN #1 inhaler PRN Reason: Wheezing Azithromycin [Zithromax] 250 mg PO DAILY #3 tab Fluticasone/Salmeterol [Fluticasone-Salmeterol 232-14] 1 each IH PRN PRN #1 aer.pow.[id number] PRN Reason: Wheezing Prednisone [Deltasone] 20 mg PO BID #4 tablet QUEtiapine [Seroquel] 25 mg PO HS #7 tab - Follow Up Plan Condition: FAIR Disposition: HOME/ ROUTINE Instructions: Chronic Obstructive Pulmonary Disease (COPD), Including Emphysema , Dystonia Additional Instructions: 1. Please follow up with your PMD in the next 3-5 days 2. Your prescriptions for zithromax, prednisone, fluticasone/salmeterol, and ventolin were sent to [facility]. Please rock picker as soon as you're discharged 3. Please follow up with your psychiatrist regarding restarting wellbutrin 4. If symptoms return please go to your nearest emergency department Referrals: Izzy Metcalf MD [Primary Care Provider] - <Amisha Whitney - Last Filed: 02/02/18 17:48> Provider - Provider Date of Admission: 01/30/18 20:45 Attending physician: Yariel Hughes MD Primary care physician: Izzy Metcalf MD Hospital Course - Lab Results Lab Results: Micro Results 01/30/18 21:30 Urine Urine Culture - Final <10,000 CFU/ML. MULTIPLE SPECIES. PROBABLE CONTAMINATION. 01/30/18 21:30 Blood Blood Culture - Preliminary NO GROWTH AFTER 48 HOURS 01/30/18 21:00 Blood Blood Culture - Preliminary NO GROWTH AFTER 48 HOURS Most Recent Lab Values WBC 16.9 10^3/ul (4.5-11.0) H D 02/01/18 07:30 RBC 4.79 10^6/uL (3.5-6.1) 02/01/18 07:30 Hgb 14.3 g/dL (14.0-18.0) 02/01/18 07:30 Hct 42.7 % (42.0-52.0) 02/01/18 07:30 MCV 89.1 fl (80.0-105.0) 02/01/18 07:30 MCH 29.9 pg (25.0-35.0) 02/01/18 07:30 MCHC 33.5 g/dl (31.0-37.0) 02/01/18 07:30 RDW 14.4 % (11.5-14.5) 02/01/18 07:30 Plt Count 302 10^3/uL (120.0-450.0) 02/01/18 07:30 MPV 10.7 fl (7.0-11.0) 02/01/18 07:30 Gran % 81.7 % (50.0-68.0) H 02/01/18 07:30 Lymph % (Auto) 10.4 % (22.0-35.0) L 02/01/18 07:30 [place] % (Auto) 7.7 % (1.0-6.0) H 02/01/18 07:30 Eos % (Auto) 0.1 % (1.5-5.0) L 02/01/18 07:30 Baso % (Auto) 0.1 % (0.0-3.0) 02/01/18 07:30 Gran # 13.83 (1.4-6.5) H 02/01/18 07:30 Lymph # (Auto) 1.8 (1.2-3.4) 02/01/18 07:30 [place] # (Auto) 1.3 (0.1-0.6) H 02/01/18 07:30 Eos # (Auto) 0.0 (0.0-0.7) 02/01/18 07:30 Baso # (Auto) 0.01 K/mm3 (0.0-2.0) 02/01/18 07:30 Neutrophils % (Manual) 95 % (50.0-70.0) H 01/31/18 06:45 Band Neutrophils % 1 % (0-2) 01/31/18 06:45 Lymphocytes % (Manual) 3 % (22.0-35.0) L 01/31/18 06:45 Monocytes % (Manual) 1 % (1.0-6.0) 01/31/18 06:45 Platelet Evaluation Normal (NORMAL) 01/31/18 06:45 PT 11.5 SECONDS (9.4-12.5) 01/30/18 18:00 INR 1.01 01/30/18 18:00 APTT 31.2 Seconds (25.1-36.5) 01/30/18 18:00 Sodium 141 mmol/L (132-148) 02/01/18 07:30 Potassium 4.3 mmol/L (3.6-5.0) 02/01/18 07:30 Chloride 107 mmol/L (98-107) 02/01/18 07:30 Carbon Dioxide 25 mmol/L (21-33) 02/01/18 07:30 Anion Gap 14 (10-20) 02/01/18 07:30 BUN 14 mg/dL (7-21) 02/01/18 07:30 Creatinine 1.0 mg/dl (0.8-1.5) 02/01/18 07:30 Est GFR ( Amer) > 60 02/01/18 07:30 Est GFR (Non-Af Amer) > 60 02/01/18 07:30 Random Glucose 112 mg/dL (70-110) H 02/01/18 07:30 Hemoglobin A1c 5.4 % (4.2-6.5) 01/30/18 18:00 Calcium 9.4 mg/dL (8.4-10.5) 02/01/18 07:30 Total Bilirubin 0.7 mg/dL (0.2-1.3) 02/01/18 07:30 AST 25 U/L (17-59) 02/01/18 07:30 ALT 31 U/L (7-56) 02/01/18 07:30 Alkaline Phosphatase 68 U/L (38-126) 02/01/18 07:30 Troponin I < 0.01 ng/mL 01/30/18 18:00 Total Protein 7.8 g/dL (5.8-8.3) 02/01/18 07:30 Albumin 4.5 g/dL (3.0-4.8) 02/01/18 07:30 Globulin 3.3 gm/dL 02/01/18 07:30 Albumin/Globulin Ratio 1.3 (1.1-1.8) 02/01/18 07:30 Triglycerides 100 mg/dL (35-160) 01/30/18 18:00 Cholesterol 148 mg/dL (130-200) 01/30/18 18:00 LDL Cholesterol Direct 68 mg/dL (0-129) 01/30/18 18:00 HDL Cholesterol 45 mg/dL (29-60) 01/30/18 18:00 Blood Type O POSITIVE 01/30/18 18:00 Blood Type Confirm O POSITIVE 01/30/18 19:33 Antibody Screen Negative 01/30/18 18:00 BBK History Checked No verified bt 01/30/18 18:00 Attending/Attestation - Attestation I have personally seen and examined this patient.: Yes I have fully participated in the care of the patient.: Yes I have reviewed all pertinent clinical information, including history, physical exam and plan: Yes Notes (Text): 02/02/18 17:42 Medical record note made by the resident after discussion with my direction and input after the patient was personally seen and examined by me. I have reviewed the chart and agree that the record accurately reflects by personal performance of the history, physical exam, data review, and medical decision-making, in the course for the patient. I have also personally directed the plan of care. 53 yrs old male was admitted with extrapyramidal symptoms and mild COPD exacerbation. Extrapyramidal symptoms were likely due to Haldol which patient was getting, Welbutrin could also has contributed.Patient symptoms has improved with Benadryl. Wellbutrin is on hold.Haldol is discontinued.Psychiatry and Neurology evaluation is appreciated.Patient will follow up with her Psychiatrist in 4-5 days. COPD is improved.Patient is on room air , not wheezing and is ambulatory.He will be discharged home on total five dose of [id number] mg po daily. Management plan was discussed in detail with patient. Education was provided. 02/02/18 17:43
--- NOTE | 2018-02-01 20:10 | PN ---
DATE: 02/01/2018 SUBJECTIVE: Patient came today on the medical side. Patient presented with much better improvement to compare with yesterday. Patient reported that he slept very well. Patient reported that he likes Seroquel. This commercial loan underwriter educated the patient about diagnoses, risks, benefits and alternatives to all medications. Patient also was advised not to take Haldol anymore and pass that message to primary psychiatrist. Patient verbalized understanding. Patient said that his mood is stable. Patient denied any thoughts of harming himself or others. Patient presented optimistic. Patient has followup appointment at [facility]. Patient was seen by Neurology medical team. Vital signs seems to be stable. Temperature 98.4, pulse is 84, blood pressure 138/83, respirations 20, oxygen saturation is 94. MEDICATIONS: Reviewed. In regards of the psychotropic medications, Wellbutrin was decreased to 150 mg daily, trazodone 100 mg at the nighttime as needed for insomnia, but the patient did not have any trazodone overnight. Patient was on Seroquel 25 mg at the nighttime. Patient reported that he tolerated medications well. LABORATORY DATA: Labs reviewed. Today WBC cells were at 16.9, which is elevated, but this is medical team call. Coagulation reviewed. Chemistry reviewed. MENTAL STATUS EXAMINATION: As this commercial loan underwriter described above, the patient presented to be alert and oriented, pleasant, cooperative. Hygiene is perfect. Good eye contact. Mood described, "I feel better." Affect was reactive. Mood congruent. Thought process was coherent and goal directed. Thought content, patient denies visual, auditory, or tactile hallucinations. Denied paranoid ideation. Patient denied thoughts of harming himself or others. Denies intents or plan. Insight and judgement seems to be improving. Impulses are well controlled. IMPRESSION: Most likely, the patient has bipolar spectrum disorder. PLAN: Patient will be followed up with his Psychiatrist at [facility]. Patient was advised to take medications that was prescribed. Haldol should be discontinued. Patient also reported that he took 2 pills instead of 1 pill of 10 mg of haloperidol, altogether it was 20 mg, most likely that is why the patient had EPS symptoms. Patient was advised to take trazodone only as needed. Patient pose no imminent danger to self or others. This commercial loan underwriter will sign off. Thank you very much for letting me participate in the care of your patient. Eva Casanova MD
== END 2018-02-01 14:20 | disposition home or self-care (01) | DRG 88 ==
LOC: ED 17:42 → ERH 20:45 → 5RNO 01-31 00:37
PROVIDERS: ADMIT Internal Medicine; ATTEND Internal Medicine
DX: J44.1 Chronic obstructive pulmonary disease with (acute) exacerbation (principal); F32.9 Major depressive disorder, single episode, unspecified; F43.10 Post-traumatic stress disorder, unspecified; F41.9 Anxiety disorder, unspecified; G24.09 Other drug induced dystonia; Z87.891 Personal history of nicotine dependence